=== PATIENT | female | born 1945 | race African-American/Black ===

== ENCOUNTER → 2016-11-30 | Outpatient (CLI) | payer MEDICARE, MEDICAID ==
[~2016-11-30] MED LIST: AMLO10TA80 PO; ASPI-1159 PO; HYDR-519 PO; LIP40 PO; MORP15TA67 PO; PRO AIR INH; TELM80TA5 PO; ZOLP10TA6 PO
== END | disposition home or self-care (01) ==
LOC: NM 07:37
PROVIDERS: ATTEND Internal Medicine
DX: C50.919 Malignant neoplasm of unspecified site of unspecified female breast (principal); M17.0 Bilateral primary osteoarthritis of knee
CPT/HCPCS: 78306; A9503

== ENCOUNTER → 2017-08-02 | Day surgery (SDC) | payer MEDICARE, MEDICAID ==
[~2017-08-02] MED LIST changes: +LIDOCAINE HCL/PF 1% 10 MG/ML 30ML VIAL ONE; +SODIUM BICARBONATE 4% (2.4MEQ) 5ML VIAL IV ONE
== END | disposition home or self-care (01) ==
LOC: RAD 08:24
PROVIDERS: ATTEND Internal Medicine Hematology & Oncology
DX: D17.1 Benign lipomatous neoplasm of skin and subcutaneous tissue of trunk (principal)
CPT/HCPCS: 76942; 88305; J3490

== ENCOUNTER 2018-05-10 08:14 | Emergency (ER) | payer MEDICARE, MEDICAID ==
[~2018-05-10] VITALS: Ht 170.2 cm; Wt 100.0 kg
[~2018-05-10 08:14] MED LIST changes: -LIDOCAINE HCL/PF 1% 10 MG/ML 30ML VIAL ONE; -SODIUM BICARBONATE 4% (2.4MEQ) 5ML VIAL IV ONE; -TELM80TA5 PO; +TELM80TA8 PO
[2018-05-10 09:45] LABS: BASOPHILS % 1.1 % (0.0-2.0); EOSINOPHILS % 1.2 % (0.0-5.0); HEMATOCRIT. 36.3 % (36.0-48.0); HEMOGLOBIN. 11.6 g/dL (12.0-16.0); LYMPHOCYTES % 15.7 % (20.0-50.0); MEAN CORPUSCULAR HEMOGLOBIN 28.4 pg (28.0-32.0); MEAN CORPUSCULAR VOLUME 89.1 fL (81.0-99.0); MEAN PLATELET VOLUME 8.6 fl (7.4-10.4); MONOCYTES % 7.1 % (2.0-8.0); NEUTROPHILS % 74.9 % (40.0-76.0); PLATELET 248 x1000/uL (130-400); RED BLOOD CELL COUNT 4.07 mill/uL (4.2-5.4); RED CELL DISTRIBUTION WIDTH 13.6 % (11.6-14.6)
[2018-05-10 09:49] LABS: CHLORIDE 104 mEq/L (98-107)
[2018-05-10 12:49] VITALS: BP 153/70
== END 2018-05-10 13:01 | disposition home or self-care (01) ==
LOC: ER 08:25
DX: T65.221A Toxic effect of tobacco cigarettes, accidental (unintentional), initial encounter (principal); R06.02 Shortness of breath; D64.9 Anemia, unspecified; E11.65 Type 2 diabetes mellitus with hyperglycemia; I11.0 Hypertensive heart disease with heart failure; I50.9 Heart failure, unspecified; J44.9 Chronic obstructive pulmonary disease, unspecified; Y93.89 Activity, other specified; Y92.018 Other place in single-family (private) house as the place of occurrence of the external cause; Z79.899 Other long term (current) drug therapy
CPT/HCPCS: 36415; 71045; 83880; 84484; 93005; 99284

== ENCOUNTER 2019-01-13 16:37 | Emergency (ER) | payer MEDICARE, MEDICAID ==
[~2019-01-13] VITALS: Ht 162.6 cm; Wt 120.0 kg
[~2019-01-13 16:37] MED LIST changes: -ASPI-1159 PO; +ASPI-1393 PO
[2019-01-13] MEDS ORDERED: KETOROLAC 30MG/ML VIAL IV ONE (18:30)
[2019-01-13] MEDS ORDERED: MORPHINE SULFATE 10 MG/ML CPJ IV ONE (18:30)
[2019-01-13 19:10] LABS: BASOPHILS % 0.6 % (0.0-2.0); EOSINOPHILS % 0.3 % (0.0-5.0); HEMOGLOBIN. 11.2 g/dL (12.0-16.0); LYMPHOCYTES % 19.5 % (20.0-50.0); MEAN CORPUSCULAR HEMOGLOBIN 28.8 pg (28.0-32.0); MEAN CORPUSCULAR VOLUME 89.8 fL (81.0-99.0); MEAN PLATELET VOLUME 8.2 fl (7.4-10.4); MONOCYTES % 10.3 % (2.0-8.0); NEUTROPHILS % 69.3 % (40.0-76.0); PLATELET 263 x1000/uL (130-400)
[2019-01-13 22:43] VITALS: BP 126/70
== END 2019-01-13 23:09 | disposition home or self-care (01) ==
LOC: ER 17:15
DX: M17.12 Unilateral primary osteoarthritis, left knee (principal); E66.01 Morbid (severe) obesity due to excess calories; Z68.42 Body mass index [BMI] 45.0-49.9, adult; I10 Essential (primary) hypertension
CPT/HCPCS: 36415; 73562; 80048; 85025; 96374; 96375; 99284; J1885; J2270

== ENCOUNTER 2019-04-07 21:58 | Inpatient (IN) | payer MEDICARE, MEDICAID ==
[~2019-04-07] VITALS: Ht 162.6 cm; Wt 117.9 kg
[~2019-04-07 21:58] MED LIST changes: +ALBU4TAB6 PO; -ASPI-1393 PO; +ASPI-1497 PO; +LETR2.5T6 PO; +LORA-249 PO; +MECL-159 PO; -MORP15TA67 PO; +MORP30TA66 PO; +SPIR25TA6 PO; +TRAZ-252 PO; +XALAO EACHEYE
[2019-04-07 22:25] VITALS: BP 111/50
[2019-04-07 22:45] VITALS: BP 111/50
[2019-04-07] MEDS ORDERED: ACETAMINOPHEN 325MG TABLET PO PRN (23:15)
[2019-04-07] MEDS ORDERED: HYDROCODONE/ACETAMINOPHEN 5/325MG TABLET PO PRN (23:15)
[2019-04-07] MEDS ORDERED: ONDANSETRON HCL 4MG TABLET PO PRN (23:15)
[2019-04-07] MEDS ORDERED: CLONIDINE 0.1MG TABLET PO PRN (23:15)
[2019-04-07] MEDS ORDERED: LORAZEPAM 0.5MG TABLET PO PRN (23:15)
[2019-04-07] MEDS ORDERED: LACTULOSE 20G/30ML UDC PO PRN (23:15)
[2019-04-07] MEDS: LETROZOLE 2.5MG TABLET PO SCH (23:37)
[2019-04-07] MEDS: HYDROCODONE/ACETAMINOPHEN 10/325MG TABLET PO PRN (23:38)
[2019-04-08] MEDS: IPRATROPIUM/ALBUTEROL 0.5-3(2.5)MG/3ML NEB HHN SCH ×4 (00:50→20:15)
[2019-04-08] MEDS: ZOLPIDEM TARTRATE 5MG TABLET PO PRN (00:53)
[2019-04-08] MEDS: HYDROCODONE/ACETAMINOPHEN 10/325MG TABLET PO PRN ×5 (03:21→22:02)
[2019-04-08 08:00] VITALS: BP 122/46
[2019-04-08] MEDS: ASPIRIN 325MG EC TABLET PO SCH ×2 (08:06→16:14)
[2019-04-08] MEDS: SENNOSIDES/DOCUSATE SOD 8.6/50MG TABLET PO SCH ×2 (08:06→20:47)
[2019-04-08] MEDS: DOCUSATE SODIUM 100MG CAPSULE PO SCH ×2 (08:06→16:14)
[2019-04-08] MEDS: AMLODIPINE 10MG TABLET PO SCH (08:11)
[2019-04-08 20:00] VITALS: BP 140/56
[2019-04-08] MEDS: LETROZOLE 2.5MG TABLET PO SCH (20:46)
[2019-04-08] MEDS: ATORVASTATIN CALCIUM 40MG TABLET PO SCH (20:47)
[2019-04-08] MEDS: FAMOTIDINE 20MG TABLET PO SCH (20:47)
[2019-04-08] MEDS: TRAZODONE HCL 50MG TABLET PO SCH (20:47)
[2019-04-08] MEDS: LATANOPROST 0.005% OPHTH DROPS 2.5ML BOTHEYE SCH (20:47)
[2019-04-09] MEDS: HYDROCODONE/ACETAMINOPHEN 10/325MG TABLET PO PRN ×6 (01:02→20:15)
[2019-04-09] MEDS: IPRATROPIUM/ALBUTEROL 0.5-3(2.5)MG/3ML NEB HHN SCH ×4 (01:15→21:00)
[2019-04-09 07:06] LABS: CHLORIDE 107 mEq/L (98-107)
[2019-04-09 07:44] LABS: HEMATOCRIT 28.6 % (36.0-48.0); HEMOGLOBIN 9.4 g/dL (12.0-16.0); MEAN CORPUSCULAR VOLUME 88.4 fL (81.0-99.0); RED BLOOD CELL COUNT 3.24 mill/uL (4.2-5.4); RED CELL DISTRIBUTION WIDTH 14.1 % (11.6-14.6)
[2019-04-09 08:00] VITALS: BP 129/56
[2019-04-09] MEDS: DOCUSATE SODIUM 100MG CAPSULE PO SCH ×2 (08:25→17:00)
[2019-04-09] MEDS: SENNOSIDES/DOCUSATE SOD 8.6/50MG TABLET PO SCH ×2 (08:25→20:15)
[2019-04-09] MEDS: ASPIRIN 325MG EC TABLET PO SCH ×2 (08:25→18:06)
[2019-04-09] MEDS: AMLODIPINE 10MG TABLET PO SCH (08:25)
[2019-04-09 11:07] LABS: PLATELET 238 x1000/uL (130-400)
[2019-04-09] MEDS: LACTULOSE 20G/30ML UDC PO SCH ×3 (12:05→18:18)
[2019-04-09 13:00] VITALS: BP 135/59
[2019-04-09 20:00] VITALS: BP 154/65
[2019-04-09] MEDS: LATANOPROST 0.005% OPHTH DROPS 2.5ML BOTHEYE SCH (20:15)
[2019-04-09] MEDS: FAMOTIDINE 20MG TABLET PO SCH (20:15)
[2019-04-09] MEDS: TRAZODONE HCL 50MG TABLET PO SCH (20:15)
[2019-04-09] MEDS: ATORVASTATIN CALCIUM 40MG TABLET PO SCH (20:15)
[2019-04-09] MEDS: LETROZOLE 2.5MG TABLET PO SCH (20:15)
[2019-04-10] MEDS: HYDROCODONE/ACETAMINOPHEN 10/325MG TABLET PO PRN ×3 (02:48→10:44)
[2019-04-10 05:23] LABS: CLARITY URINE CLEAR (CLEAR); COLOR URINE YELLOW (YELLOW); KETONES URINE NEGATIVE (NEGATIVE); LEUKOCYTE ESTERASE URINE 2+ (NEGATIVE); NITRITE URINE NEGATIVE (NEGATIVE); OCCULT BLOOD URINE 3+ (NEGATIVE); PH URINE 5.5 (4.5-8.0); PROTEIN URINE NEGATIVE (NEGATIVE); SPECIFIC GRAVITY URINE 1.018 (1.005-1.030); UROBILINOGEN URINE 0.2 E.U./dL (0.2-1.0)
[2019-04-10 08:00] VITALS: BP 136/51
[2019-04-10] MEDS: IPRATROPIUM/ALBUTEROL 0.5-3(2.5)MG/3ML NEB HHN SCH ×4 (08:25→20:24)
[2019-04-10] MEDS: DOCUSATE SODIUM 100MG CAPSULE PO SCH ×2 (08:38→16:42)
[2019-04-10] MEDS: AMLODIPINE 10MG TABLET PO SCH (08:38)
[2019-04-10] MEDS: SENNOSIDES/DOCUSATE SOD 8.6/50MG TABLET PO SCH ×2 (08:38→20:56)
[2019-04-10] MEDS: ASPIRIN 325MG EC TABLET PO SCH ×2 (08:38→16:42)
[2019-04-10 10:40] VITALS: BP 137/53
[2019-04-10] MEDS ORDERED: OXYCODONE HCL/ACETAMINOPHEN 5/325MG TABLET PO PRN (13:45)
[2019-04-10 14:05] VITALS: BP 138/54
[2019-04-10] MEDS ORDERED: LEVOFLOXACIN 500MG PREMIX 100 ML IV SCH (15:00)
[2019-04-10] MEDS: LEVOFLOXACIN 500MG TABLET PO SCH (16:42)
[2019-04-10 20:00] VITALS: BP 134/53
[2019-04-10] MEDS: FAMOTIDINE 20MG TABLET PO SCH (20:56)
[2019-04-10] MEDS: TRAZODONE HCL 50MG TABLET PO SCH (20:56)
[2019-04-10] MEDS: ATORVASTATIN CALCIUM 40MG TABLET PO SCH (20:56)
[2019-04-10] MEDS: LATANOPROST 0.005% OPHTH DROPS 2.5ML BOTHEYE SCH (22:13)
[2019-04-10] MEDS: LETROZOLE 2.5MG TABLET PO SCH (22:13)
[2019-04-10] MEDS ORDERED: HYDROCODONE/ACETAMINOPHEN 10/325MG TABLET PO PRN (22:15)
[2019-04-11] MEDS: IPRATROPIUM/ALBUTEROL 0.5-3(2.5)MG/3ML NEB HHN SCH ×4 (00:13→20:42)
[2019-04-11] MEDS: HYDROCODONE/ACETAMINOPHEN 10/325MG TABLET PO PRN ×5 (03:10→21:22)
[2019-04-11 07:10] LABS: HEMATOCRIT 26.9 % (36.0-48.0); HEMOGLOBIN 8.9 g/dL (12.0-16.0); MEAN CORPUSCULAR HEMOGLOBIN 29.1 pg (28.0-32.0); PLATELET 325 x1000/uL (130-400); RED BLOOD CELL COUNT 3.06 mill/uL (4.2-5.4); RED CELL DISTRIBUTION WIDTH 14.1 % (11.6-14.6)
[2019-04-11] MEDS: SENNOSIDES/DOCUSATE SOD 8.6/50MG TABLET PO SCH ×2 (08:10→21:16)
[2019-04-11] MEDS: AMLODIPINE 10MG TABLET PO SCH (08:10)
[2019-04-11] MEDS: LEVOFLOXACIN 500MG TABLET PO SCH (08:10)
[2019-04-11] MEDS: DOCUSATE SODIUM 100MG CAPSULE PO SCH ×2 (08:10→16:26)
[2019-04-11] MEDS: ASPIRIN 325MG EC TABLET PO SCH ×2 (08:10→16:26)
[2019-04-11 08:20] VITALS: BP 128/55
[2019-04-11 08:29] LABS: CHLORIDE 105 mEq/L (98-107)
[2019-04-11 11:15] VITALS: BP 156/72
[2019-04-11] MEDS ORDERED: LACTULOSE 20G/30ML UDC PO NR (13:15)
[2019-04-11] MEDS ORDERED: MORPHINE SULFATE 30MG TABLET SR PO PRN (13:15)
[2019-04-11 14:55] VITALS: BP 161/79
[2019-04-11] MEDS: CLOTRIMAZOLE 1% CREAM 30GM TOP SCH (17:48)
[2019-04-11 20:00] VITALS: BP 125/52
[2019-04-11] MEDS: LATANOPROST 0.005% OPHTH DROPS 2.5ML BOTHEYE SCH (21:16)
[2019-04-11] MEDS: ATORVASTATIN CALCIUM 40MG TABLET PO SCH (21:16)
[2019-04-11] MEDS: FAMOTIDINE 20MG TABLET PO SCH (21:16)
[2019-04-11] MEDS: TRAZODONE HCL 50MG TABLET PO SCH (21:21)
[2019-04-11] MEDS: LETROZOLE 2.5MG TABLET PO SCH (21:41)
[2019-04-12] MEDS: IPRATROPIUM/ALBUTEROL 0.5-3(2.5)MG/3ML NEB HHN SCH ×4 (01:11→20:05)
[2019-04-12] MEDS: HYDROCODONE/ACETAMINOPHEN 10/325MG TABLET PO PRN ×5 (02:53→23:32)
[2019-04-12 08:02] VITALS: BP 137/47
[2019-04-12] MEDS: AMLODIPINE 10MG TABLET PO SCH (08:56)
[2019-04-12] MEDS: CLOTRIMAZOLE 1% CREAM 30GM TOP SCH (08:56)
[2019-04-12] MEDS: ASPIRIN 325MG EC TABLET PO SCH ×2 (08:56→16:12)
[2019-04-12] MEDS: SENNOSIDES/DOCUSATE SOD 8.6/50MG TABLET PO SCH ×2 (08:56→21:35)
[2019-04-12] MEDS: LEVOFLOXACIN 500MG TABLET PO SCH (08:56)
[2019-04-12] MEDS: LACTULOSE 20G/30ML UDC PO SCH (08:57)
[2019-04-12] MEDS: DOCUSATE SODIUM 100MG CAPSULE PO SCH ×2 (08:57→16:12)
[2019-04-12 20:00] VITALS: BP 141/47
[2019-04-12] MEDS: LATANOPROST 0.005% OPHTH DROPS 2.5ML BOTHEYE SCH (21:34)
[2019-04-12] MEDS: ATORVASTATIN CALCIUM 40MG TABLET PO SCH (21:35)
[2019-04-12] MEDS: FAMOTIDINE 20MG TABLET PO SCH (21:35)
[2019-04-12] MEDS: TRAZODONE HCL 50MG TABLET PO SCH (21:35)
[2019-04-12] MEDS: LETROZOLE 2.5MG TABLET PO SCH (21:35)
[2019-04-13] MEDS: HYDROCODONE/ACETAMINOPHEN 10/325MG TABLET PO PRN ×4 (06:35→19:31)
[2019-04-13 06:41] LABS: BASOPHILS % 1.2 % (0.0-2.0); EOSINOPHILS % 3.9 % (0.0-5.0); HEMATOCRIT. 26.5 % (36.0-48.0); HEMOGLOBIN. 8.8 g/dL (12.0-16.0); LYMPHOCYTES % 14.3 % (20.0-50.0); MEAN CORPUSCULAR VOLUME 87.6 fL (81.0-99.0); MEAN PLATELET VOLUME 7.8 fl (7.4-10.4); MONOCYTES % 10.2 % (2.0-8.0); NEUTROPHILS % 70.4 % (40.0-76.0); PLATELET 393 x1000/uL (130-400); RED BLOOD CELL COUNT 3.03 mill/uL (4.2-5.4)
[2019-04-13 07:24] LABS: CHLORIDE 107 mEq/L (98-107)
[2019-04-13 07:40] VITALS: BP 125/52
[2019-04-13] MEDS: LEVOFLOXACIN 500MG TABLET PO SCH (08:11)
[2019-04-13] MEDS: SENNOSIDES/DOCUSATE SOD 8.6/50MG TABLET PO SCH ×2 (08:11→21:05)
[2019-04-13] MEDS: DOCUSATE SODIUM 100MG CAPSULE PO SCH ×3 (08:11→16:52)
[2019-04-13] MEDS: AMLODIPINE 10MG TABLET PO SCH (08:11)
[2019-04-13] MEDS: ASPIRIN 325MG EC TABLET PO SCH ×2 (08:11→16:50)
[2019-04-13] MEDS: LACTULOSE 20G/30ML UDC PO SCH (08:12)
[2019-04-13] MEDS: CLOTRIMAZOLE 1% CREAM 30GM TOP SCH (08:13)
[2019-04-13] MEDS: IPRATROPIUM/ALBUTEROL 0.5-3(2.5)MG/3ML NEB HHN SCH ×4 (11:04→19:50)
[2019-04-13 15:37] LABS: CLARITY URINE CLEAR (CLEAR); COLOR URINE YELLOW (YELLOW); KETONES URINE NEGATIVE (NEGATIVE); LEUKOCYTE ESTERASE URINE NEGATIVE (NEGATIVE); NITRITE URINE NEGATIVE (NEGATIVE); OCCULT BLOOD URINE NEGATIVE (NEGATIVE); PROTEIN URINE NEGATIVE (NEGATIVE); SPECIFIC GRAVITY URINE 1.023 (1.005-1.030); UROBILINOGEN URINE 0.2 E.U./dL (0.2-1.0)
[2019-04-13 20:00] VITALS: BP 140/51
[2019-04-13] MEDS: LATANOPROST 0.005% OPHTH DROPS 2.5ML BOTHEYE SCH (21:04)
[2019-04-13] MEDS: LETROZOLE 2.5MG TABLET PO SCH (21:04)
[2019-04-13] MEDS: ATORVASTATIN CALCIUM 40MG TABLET PO SCH (21:05)
[2019-04-13] MEDS: TRAZODONE HCL 50MG TABLET PO SCH (21:05)
[2019-04-13] MEDS: FAMOTIDINE 20MG TABLET PO SCH (21:05)
[2019-04-13] MEDS: ZOLPIDEM TARTRATE 5MG TABLET PO PRN (21:38)
[2019-04-14] MEDS: HYDROCODONE/ACETAMINOPHEN 10/325MG TABLET PO PRN ×6 (00:59→22:38)
[2019-04-14] MEDS: ASPIRIN 325MG EC TABLET PO SCH ×2 (08:13→16:46)
[2019-04-14] MEDS: CLOTRIMAZOLE 1% CREAM 30GM TOP SCH (08:13)
[2019-04-14] MEDS: LEVOFLOXACIN 500MG TABLET PO SCH (08:13)
[2019-04-14] MEDS: AMLODIPINE 10MG TABLET PO SCH (08:14)
[2019-04-14] MEDS: SENNOSIDES/DOCUSATE SOD 8.6/50MG TABLET PO SCH ×3 (08:14→22:34)
[2019-04-14] MEDS: LACTULOSE 20G/30ML UDC PO SCH (08:14)
[2019-04-14] MEDS: DOCUSATE SODIUM 100MG CAPSULE PO SCH ×2 (08:14→16:46)
[2019-04-14 08:33] VITALS: BP 133/52
[2019-04-14 09:55] VITALS: BP 138/44
[2019-04-14] MEDS: IPRATROPIUM/ALBUTEROL 0.5-3(2.5)MG/3ML NEB HHN SCH ×3 (13:13→21:10)
[2019-04-14 14:30] VITALS: BP 109/67
[2019-04-14 18:15] VITALS: BP 124/56
[2019-04-14 20:00] VITALS: BP 133/55
[2019-04-14] MEDS: ATORVASTATIN CALCIUM 40MG TABLET PO SCH (21:33)
[2019-04-14] MEDS: FAMOTIDINE 20MG TABLET PO SCH (21:33)
[2019-04-14] MEDS: TRAZODONE HCL 50MG TABLET PO SCH (21:33)
[2019-04-14] MEDS: LATANOPROST 0.005% OPHTH DROPS 2.5ML BOTHEYE SCH (21:34)
[2019-04-14] MEDS: LETROZOLE 2.5MG TABLET PO SCH (21:34)
[2019-04-15] MEDS: ZOLPIDEM TARTRATE 5MG TABLET PO PRN ×2 (00:06→23:55)
[2019-04-15] MEDS: IPRATROPIUM/ALBUTEROL 0.5-3(2.5)MG/3ML NEB HHN SCH (00:20)
[2019-04-15] MEDS: HYDROCODONE/ACETAMINOPHEN 10/325MG TABLET PO PRN ×5 (05:23→22:17)
[2019-04-15] MEDS ORDERED: BISACODYL 10MG SUPP PR PRN (08:30)
[2019-04-15 08:31] VITALS: BP 121/60
[2019-04-15] MEDS: SENNOSIDES/DOCUSATE SOD 8.6/50MG TABLET PO SCH ×2 (08:46→21:37)
[2019-04-15] MEDS: ASPIRIN 325MG EC TABLET PO SCH ×2 (08:46→16:06)
[2019-04-15] MEDS: CLOTRIMAZOLE 1% CREAM 30GM TOP SCH (08:46)
[2019-04-15] MEDS: DOCUSATE SODIUM 100MG CAPSULE PO SCH ×2 (08:46→16:07)
[2019-04-15] MEDS: LEVOFLOXACIN 500MG TABLET PO SCH (08:46)
[2019-04-15] MEDS: LACTULOSE 20G/30ML UDC PO SCH (08:47)
[2019-04-15 09:30] VITALS: BP 133/72
[2019-04-15] MEDS: AMLODIPINE 10MG TABLET PO SCH (10:31)
[2019-04-15 20:00] VITALS: BP 119/42
[2019-04-15] MEDS: ATORVASTATIN CALCIUM 40MG TABLET PO SCH (21:37)
[2019-04-15] MEDS: FAMOTIDINE 20MG TABLET PO SCH (21:37)
[2019-04-15] MEDS: TRAZODONE HCL 50MG TABLET PO SCH (21:38)
[2019-04-15] MEDS: LETROZOLE 2.5MG TABLET PO SCH (21:38)
[2019-04-15] MEDS: LATANOPROST 0.005% OPHTH DROPS 2.5ML BOTHEYE SCH (21:40)
[2019-04-16] MEDS ORDERED: HYDROCODONE/ACETAMINOPHEN 10/325MG TABLET PO PRN (02:00)
[2019-04-16] MEDS: HYDROCODONE/ACETAMINOPHEN 10/325MG TABLET PO PRN ×5 (04:14→21:47)
[2019-04-16 07:50] LABS: BASOPHILS % 1.2 % (0.0-2.0); EOSINOPHILS % 3.5 % (0.0-5.0); HEMATOCRIT. 28.9 % (36.0-48.0); HEMOGLOBIN. 9.3 g/dL (12.0-16.0); MEAN CORPUSCULAR HEMOGLOBIN 28.5 pg (28.0-32.0); MEAN CORPUSCULAR VOLUME 88.4 fL (81.0-99.0); MEAN PLATELET VOLUME 7.5 fl (7.4-10.4); MONOCYTES % 9.1 % (2.0-8.0); NEUTROPHILS % 71.2 % (40.0-76.0); PLATELET 461 x1000/uL (130-400); RED BLOOD CELL COUNT 3.27 mill/uL (4.2-5.4); RED CELL DISTRIBUTION WIDTH 14.3 % (11.6-14.6)
[2019-04-16 07:54] LABS: CHLORIDE 109 mEq/L (98-107)
[2019-04-16 08:00] VITALS: BP 118/49
[2019-04-16] MEDS: SENNOSIDES/DOCUSATE SOD 8.6/50MG TABLET PO SCH ×2 (08:31→21:32)
[2019-04-16] MEDS: ASPIRIN 325MG EC TABLET PO SCH ×2 (08:31→16:55)
[2019-04-16] MEDS: DOCUSATE SODIUM 100MG CAPSULE PO SCH ×2 (08:31→16:55)
[2019-04-16] MEDS: LEVOFLOXACIN 500MG TABLET PO SCH (08:31)
[2019-04-16] MEDS: AMLODIPINE 10MG TABLET PO SCH (08:33)
[2019-04-16] MEDS: LACTULOSE 20G/30ML UDC PO SCH (08:33)
[2019-04-16] MEDS: CLOTRIMAZOLE 1% CREAM 30GM TOP SCH (08:34)
[2019-04-16] MEDS: IPRATROPIUM/ALBUTEROL 0.5-3(2.5)MG/3ML NEB HHN SCH ×2 (15:44→21:28)
[2019-04-16 20:00] VITALS: BP 148/55
[2019-04-16] MEDS: TRAZODONE HCL 50MG TABLET PO SCH (21:32)
[2019-04-16] MEDS: ATORVASTATIN CALCIUM 40MG TABLET PO SCH (21:32)
[2019-04-16] MEDS: LETROZOLE 2.5MG TABLET PO SCH (21:32)
[2019-04-16] MEDS: FAMOTIDINE 20MG TABLET PO SCH (21:32)
[2019-04-16] MEDS: LATANOPROST 0.005% OPHTH DROPS 2.5ML BOTHEYE SCH (21:33)
[2019-04-16] MEDS: ZOLPIDEM TARTRATE 5MG TABLET PO PRN (23:28)
[2019-04-17] MEDS: IPRATROPIUM/ALBUTEROL 0.5-3(2.5)MG/3ML NEB HHN SCH ×4 (01:13→20:32)
[2019-04-17] MEDS: HYDROCODONE/ACETAMINOPHEN 10/325MG TABLET PO PRN ×5 (03:55→21:23)
[2019-04-17 08:00] VITALS: BP 134/56
[2019-04-17] MEDS: AMLODIPINE 10MG TABLET PO SCH (08:12)
[2019-04-17] MEDS: SENNOSIDES/DOCUSATE SOD 8.6/50MG TABLET PO SCH ×2 (08:12→21:23)
[2019-04-17] MEDS: DOCUSATE SODIUM 100MG CAPSULE PO SCH ×2 (08:12→16:39)
[2019-04-17] MEDS: LEVOFLOXACIN 500MG TABLET PO SCH (08:12)
[2019-04-17] MEDS: ASPIRIN 325MG EC TABLET PO SCH ×2 (08:12→16:39)
[2019-04-17] MEDS: CLOTRIMAZOLE 1% CREAM 30GM TOP SCH (08:56)
[2019-04-17] MEDS: LACTULOSE 20G/30ML UDC PO SCH (08:56)
[2019-04-17 20:00] VITALS: BP 107/46
[2019-04-17] MEDS: LATANOPROST 0.005% OPHTH DROPS 2.5ML BOTHEYE SCH (21:21)
[2019-04-17] MEDS: TRAZODONE HCL 50MG TABLET PO SCH (21:22)
[2019-04-17] MEDS: FAMOTIDINE 20MG TABLET PO SCH (21:22)
[2019-04-17] MEDS: ATORVASTATIN CALCIUM 40MG TABLET PO SCH (21:23)
[2019-04-17] MEDS: LETROZOLE 2.5MG TABLET PO SCH (21:24)
[2019-04-17] MEDS: ZOLPIDEM TARTRATE 5MG TABLET PO PRN (23:57)
[2019-04-18] MEDS: IPRATROPIUM/ALBUTEROL 0.5-3(2.5)MG/3ML NEB HHN SCH ×3 (00:03→19:54)
[2019-04-18] MEDS: HYDROCODONE/ACETAMINOPHEN 10/325MG TABLET PO PRN ×5 (02:32→21:02)
[2019-04-18 06:32] LABS: BASOPHILS % 1.2 % (0.0-2.0); EOSINOPHILS % 3.4 % (0.0-5.0); HEMATOCRIT. 29.1 % (36.0-48.0); HEMOGLOBIN. 9.3 g/dL (12.0-16.0); LYMPHOCYTES % 20.1 % (20.0-50.0); MEAN CORPUSCULAR HEMOGLOBIN 28.4 pg (28.0-32.0); MEAN CORPUSCULAR VOLUME 88.8 fL (81.0-99.0); MEAN PLATELET VOLUME 7.3 fl (7.4-10.4); MONOCYTES % 10.1 % (2.0-8.0); NEUTROPHILS % 65.2 % (40.0-76.0); PLATELET 435 x1000/uL (130-400); RED BLOOD CELL COUNT 3.28 mill/uL (4.2-5.4); RED CELL DISTRIBUTION WIDTH 14.6 % (11.6-14.6)
[2019-04-18 06:54] LABS: CHLORIDE 109 mEq/L (98-107)
[2019-04-18 08:09] VITALS: BP 158/62
[2019-04-18] MEDS: LACTULOSE 20G/30ML UDC PO SCH ×2 (09:00→09:10)
[2019-04-18] MEDS: ASPIRIN 325MG EC TABLET PO SCH ×2 (09:10→16:37)
[2019-04-18] MEDS: SENNOSIDES/DOCUSATE SOD 8.6/50MG TABLET PO SCH ×2 (09:10→21:00)
[2019-04-18] MEDS: AMLODIPINE 10MG TABLET PO SCH (09:10)
[2019-04-18] MEDS: CLOTRIMAZOLE 1% CREAM 30GM TOP SCH (09:10)
[2019-04-18] MEDS: DOCUSATE SODIUM 100MG CAPSULE PO SCH ×2 (09:10→16:37)
[2019-04-18] MEDS: MAGNESIUM OXIDE 400MG TABLET PO SCH (18:25)
[2019-04-18 20:00] VITALS: BP 116/46
[2019-04-18] MEDS: FAMOTIDINE 20MG TABLET PO SCH (21:00)
[2019-04-18] MEDS: TRAZODONE HCL 50MG TABLET PO SCH (21:00)
[2019-04-18] MEDS: ATORVASTATIN CALCIUM 40MG TABLET PO SCH (21:00)
[2019-04-18] MEDS: LETROZOLE 2.5MG TABLET PO SCH (21:02)
[2019-04-18] MEDS: LATANOPROST 0.005% OPHTH DROPS 2.5ML BOTHEYE SCH (21:02)
[2019-04-19] MEDS ORDERED: ZOLPIDEM TARTRATE 5MG TABLET PO PRN (00:15)
[2019-04-19] MEDS: IPRATROPIUM/ALBUTEROL 0.5-3(2.5)MG/3ML NEB HHN SCH ×3 (01:45→13:09)
[2019-04-19] MEDS: HYDROCODONE/ACETAMINOPHEN 10/325MG TABLET PO PRN ×3 (03:08→13:38)
[2019-04-19 08:23] VITALS: BP 113/42
[2019-04-19] MEDS: MAGNESIUM OXIDE 400MG TABLET PO SCH (08:38)
[2019-04-19] MEDS: ASPIRIN 325MG EC TABLET PO SCH (08:38)
[2019-04-19] MEDS: SENNOSIDES/DOCUSATE SOD 8.6/50MG TABLET PO SCH (08:38)
[2019-04-19] MEDS: CLOTRIMAZOLE 1% CREAM 30GM TOP SCH (08:38)
[2019-04-19] MEDS: DOCUSATE SODIUM 100MG CAPSULE PO SCH (08:38)
[2019-04-19] MEDS: LACTULOSE 20G/30ML UDC PO SCH (09:00)
[2019-04-19 10:50] VITALS: BP 154/64
[2019-04-19] MEDS: AMLODIPINE 10MG TABLET PO SCH (10:56)
[2019-04-19] MEDS ORDERED: IPRA3AMP9 NEB (13:06)
[2019-04-19 14:23] VITALS: BP 126/54
== END 2019-04-19 16:15 | disposition home health service (06) | DRG 554 ==
PROVIDERS: ADMIT Psychiatry & Neurology Neurology; ATTEND Internal Medicine
PROC: 0HBRXZZ Excision of Toe Nail, External Approach (ICD-10-PCS; principal; 2019-04-11)
PROC: 0HBRXZZ Excision of Toe Nail, External Approach (ICD-10-PCS; 2019-04-11)
PROC: 0HBRXZZ Excision of Toe Nail, External Approach (ICD-10-PCS; 2019-04-11)
PROC: 0HBRXZZ Excision of Toe Nail, External Approach (ICD-10-PCS; 2019-04-11)
PROC: 0HBRXZZ Excision of Toe Nail, External Approach (ICD-10-PCS; 2019-04-11)
PROC: 0HBRXZZ Excision of Toe Nail, External Approach (ICD-10-PCS; 2019-04-11)
PROC: 0HBRXZZ Excision of Toe Nail, External Approach (ICD-10-PCS; 2019-04-11)
PROC: 0HBRXZZ Excision of Toe Nail, External Approach (ICD-10-PCS; 2019-04-11)
PROC: 0HBRXZZ Excision of Toe Nail, External Approach (ICD-10-PCS; 2019-04-11)
PROC: 0HBRXZZ Excision of Toe Nail, External Approach (ICD-10-PCS; 2019-04-11)
DX: M17.12 Unilateral primary osteoarthritis, left knee (principal); Z68.41 Body mass index [BMI] 40.0-44.9, adult; F11.20 Opioid dependence, uncomplicated; I31.3 Pericardial effusion (noninflammatory); N39.0 Urinary tract infection, site not specified; D64.9 Anemia, unspecified; E11.9 Type 2 diabetes mellitus without complications; E66.01 Morbid (severe) obesity due to excess calories; E78.5 Hyperlipidemia, unspecified; I11.9 Hypertensive heart disease without heart failure; I25.10 Atherosclerotic heart disease of native coronary artery without angina pectoris; J45.909 Unspecified asthma, uncomplicated; Z96.652 Presence of left artificial knee joint; Z87.891 Personal history of nicotine dependence; Z79.899 Other long term (current) drug therapy; Z79.82 Long term (current) use of aspirin; B35.3 Tinea pedis; B35.1 Tinea unguium; Z71.3 Dietary counseling and surveillance; M21.372 Foot drop, left foot; K59.00 Constipation, unspecified; B96.5 Pseudomonas (aeruginosa) (mallei) (pseudomallei) as the cause of diseases classified elsewhere; G89.29 Other chronic pain
CPT/HCPCS: 36415; 80048; 81003; 82962; 83735; 85025; 85027; 87077; 87186; 93306; 94640; 97110; 97116; 97162; 97166; 97530; 97535; A6261; J1956; J7620

== ENCOUNTER 2019-06-17 09:40 | Inpatient (IN) | payer MEDICARE, MEDICAID ==
[~2019-06-17] VITALS: Ht 162.6 cm; Wt 125.2 kg
[~2019-06-17 09:40] MED LIST changes: +IPRA3AMP9 NEB; -LETR2.5T6 PO; +LETR2.5T7 PO
[2019-06-17] MEDS ORDERED: ASPIRIN 81MG TABLET PO ONE (11:30)
[2019-06-17] MEDS ORDERED: IPRATROPIUM BROMIDE (0.02%) 0.5MG/2.5ML NEB HHN STA (11:30)
[2019-06-17] MEDS ORDERED: NITROGLYCERIN 0.4MG TABLET SL SL PRN (11:30)
[2019-06-17] MEDS ORDERED: METHYLPREDNISOLONE SOD SUCC 125 MG/2 ML VIAL IV STA (11:30)
[2019-06-17] MEDS ORDERED: ALBUTEROL (0.083%) 2.5MG/3ML NEB HHN STA (11:30)
[2019-06-17] MEDS ORDERED: AMLODIPINE 5MG TABLET PO ONE (11:45)
[2019-06-17 12:54] LABS: HEMATOCRIT. 33.1 % (36.0-48.0); HEMOGLOBIN. 10.6 g/dL (12.0-16.0); MEAN CORPUSCULAR HEMOGLOBIN 28.1 pg (28.0-32.0); MEAN CORPUSCULAR VOLUME 87.6 fL (81.0-99.0); MEAN PLATELET VOLUME 8.5 fl (7.4-10.4); PLATELET 213 x1000/uL (130-400); RED BLOOD CELL COUNT 3.78 mill/uL (4.2-5.4); RED CELL DISTRIBUTION WIDTH 14.8 % (11.6-14.6)
[2019-06-17 12:57] LABS: CHLORIDE 105 mEq/L (98-107)
[2019-06-17 13:43] LABS: PLATELET ESTIMATE NORMAL
[2019-06-17] MEDS ORDERED: IPRATROPIUM/ALBUTEROL 0.5-3(2.5)MG/3ML NEB NEB PRN (14:45)
[2019-06-17] MEDS ORDERED: MAGNESIUM/ALUMINUM HYDROXIDE/SIMETHICONE 30ML UDC PO PRN (14:45)
[2019-06-17] MEDS ORDERED: ACETAMINOPHEN 325MG TABLET PO PRN (14:45)
[2019-06-17] MEDS ORDERED: DOCUSATE SODIUM 100MG CAPSULE PO PRN (14:45)
[2019-06-17] MEDS ORDERED: GUAIFENESIN 200MG/10ML SUGAR FREE UDC PO PRN (14:45)
[2019-06-17] MEDS ORDERED: DIPHENHYDRAMINE 50MG/ML VIAL IV PRN (14:45)
[2019-06-17] MEDS ORDERED: ACETAMINOPHEN 650MG SUPP PR PRN (14:45)
[2019-06-17] MEDS ORDERED: CLONIDINE 0.1MG TABLET PO PRN (14:45)
[2019-06-17] MEDS ORDERED: ONDANSETRON HCL 4MG/2ML INJ IV PRN (14:45)
[2019-06-17] MEDS ORDERED: NA PHOS,M-B/NA PHOS,DI-BA ENEMA 118ML PR PRN (14:45)
[2019-06-17 17:32] VITALS: BP 156/77
[2019-06-17] MEDS ORDERED: HYDRALAZINE 20MG/ML VIAL IV NR (17:35)
[2019-06-17 18:01] VITALS: BP 156/112
[2019-06-17] MEDS: AMLODIPINE 10MG TABLET PO SCH (18:02)
[2019-06-17] MEDS: IPRATROPIUM/ALBUTEROL 0.5-3(2.5)MG/3ML NEB NEB SCH ×2 (18:35→19:58)
[2019-06-17 18:38] VITALS: BP 155/77
[2019-06-17 18:42] LABS: BG BASE EXCESS -5.1 mmol/L (-2.0-2.0); BG CARBOXYHEMOGLOBIN 0.3 % (0.5-1.5); BG DEOXYHEMOGLOBIN 3.3 % (0.0-5.0); BG FRACTION INSPIRED OXYGEN 36; BG HCO3 ACT 17.6 mmol/L (22.0-26.0); BG METHEMOGLOBIN 0.2 % (0.0-1.5); BG OXYGEN SATURATION 96.7 % (92.0-98.5); BG OXYHEMOGLOBIN 96.2 % (94.0-97.0); BG PCO2 25.5 mmHg (35.0-45.0); BG PH 7.456 (7.350-7.450); BG PO2 85.7 mmHg (75.0-100.0); BG SAMPLE SITE RIGHT RADIAL; BG TOTAL HEMOGLOBIN 10.4 g/dL (12.0-18.0); BG VENT MODE NASAL CANNULA
[2019-06-17] MEDS ORDERED: ENOXAPARIN 40MG/0.4ML SYR SUBCUT SCH (19:00)
[2019-06-17 20:00] VITALS: BP 146/97
[2019-06-17] MEDS: PIPERACILLIN/TAZOBACTAM 3.375 G in DEXT 5% WATER 100 ML IV SCH (20:02)
[2019-06-17] MEDS: ATORVASTATIN CALCIUM 40MG TABLET PO SCH (20:03)
[2019-06-17] MEDS: TRAZODONE HCL 50MG TABLET PO SCH (20:03)
[2019-06-17] MEDS: METHYLPREDNISOLONE SOD SUCC 40 MG/ML VIAL IV SCH (20:03)
[2019-06-17] MEDS: ENOXAPARIN 30MG/0.3ML SYR SUBCUT SCH (20:08)
[2019-06-17] MEDS: FAMOTIDINE 20MG TABLET PO SCH (20:09)
[2019-06-17] MEDS ORDERED: MEDICATION NOT ON FORMULARY EA (Trazodone Hcl 100 MG) PO SCH (21:00)
[2019-06-17] MEDS ORDERED: LETROZOLE 2.5MG TABLET PO SCH (21:00)
[2019-06-17] MEDS: LATANOPROST 0.005% OPHTH DROPS 2.5ML EACHEYE SCH (21:02)
[2019-06-17 22:00] VITALS: BP 151/79
[2019-06-17 23:07] LABS: CREATINE KINASE MB FRACTION 2.9 ng/mL (0.5-3.6)
[2019-06-18] VITALS (14 sets, daily range): BP systolic 116–157; BP diastolic 56–85
[2019-06-18] MEDS: LORAZEPAM 0.5MG TABLET PO PRN (00:55)
[2019-06-18] MEDS: PIPERACILLIN/TAZOBACTAM 3.375 G in DEXT 5% WATER 100 ML IV SCH ×4 (01:01→22:56)
[2019-06-18 06:33] LABS: BASOPHILS % 0.3 % (0.0-2.0); HEMATOCRIT. 32.5 % (36.0-48.0); HEMOGLOBIN. 10.5 g/dL (12.0-16.0); LYMPHOCYTES % 13.6 % (20.0-50.0); MEAN CORPUSCULAR HEMOGLOBIN 27.9 pg (28.0-32.0); MEAN CORPUSCULAR VOLUME 86.6 fL (81.0-99.0); MONOCYTES % 3.5 % (2.0-8.0); NEUTROPHILS % 82.6 % (40.0-76.0); PLATELET 213 x1000/uL (130-400); RED BLOOD CELL COUNT 3.75 mill/uL (4.2-5.4)
[2019-06-18 06:54] LABS: CHLORIDE 103 mEq/L (98-107)
[2019-06-18 07:03] LABS: LDL CHOLESTEROL 68 mg/dL (5-100)
[2019-06-18 07:04] LABS: CREATINE KINASE 115 IU/L (26-192); CREATINE KINASE MB FRACTION 2.2 ng/mL (0.5-3.6); HDL CHOLESTEROL 63 mg/dL (40-59)
[2019-06-18 07:05] LABS: T4 FREE 0.81 ng/dL (0.76-1.46)
[2019-06-18] MEDS: METHYLPREDNISOLONE SOD SUCC 40 MG/ML VIAL IV SCH ×2 (08:16→20:42)
[2019-06-18] MEDS: ENOXAPARIN 30MG/0.3ML SYR SUBCUT SCH ×2 (08:16→20:49)
[2019-06-18] MEDS: SPIRONOLACTONE 25MG TABLET PO SCH (08:17)
[2019-06-18] MEDS: AMLODIPINE 10MG TABLET PO SCH (08:17)
[2019-06-18] MEDS: ASPIRIN 81MG EC TABLET PO SCH (08:17)
[2019-06-18] MEDS ORDERED: LETROZOLE 2.5MG TABLET PO SCH (09:00)
[2019-06-18] MEDS: IPRATROPIUM/ALBUTEROL 0.5-3(2.5)MG/3ML NEB NEB SCH ×2 (09:55→16:57)
[2019-06-18] MEDS: AMLODIPINE 5MG TABLET PO SCH (11:00)
[2019-06-18] MEDS ORDERED: DEXTROSE 50% WATER 50ML SYRINGE IV PRN (14:45)
[2019-06-18] MEDS: BLOOD SUGAR DIAGNOSTIC STRIP TEST SCH ×2 (15:58→21:24)
[2019-06-18] MEDS: INSULIN LISPRO 100 UNITS/ML SUBCUT SCH ×2 (16:32→23:00)
[2019-06-18] MEDS ORDERED: INSULIN LISPRO 100 UNITS/ML SUBCUT SCH (17:20)
[2019-06-18 17:43] LABS: INR 1.1; PROTHROMBIN TIME 11.7 sec (9.6-11.0)
[2019-06-18 18:59] LABS: CLARITY URINE CLEAR (CLEAR); COLOR URINE YELLOW (YELLOW); KETONES URINE NEGATIVE (NEGATIVE); LEUKOCYTE ESTERASE URINE NEGATIVE (NEGATIVE); NITRITE URINE NEGATIVE (NEGATIVE); OCCULT BLOOD URINE NEGATIVE (NEGATIVE); PROTEIN URINE 1+ (NEGATIVE); SPECIFIC GRAVITY URINE 1.027 (1.005-1.030); UROBILINOGEN URINE 0.2 E.U./dL (0.2-1.0)
[2019-06-18] MEDS: ATORVASTATIN CALCIUM 40MG TABLET PO SCH (20:42)
[2019-06-18] MEDS: FAMOTIDINE 20MG TABLET PO SCH (20:42)
[2019-06-18] MEDS: TRAZODONE HCL 50MG TABLET PO SCH (20:42)
[2019-06-18] MEDS: LATANOPROST 0.005% OPHTH DROPS 2.5ML EACHEYE SCH (20:46)
[2019-06-18] MEDS: HYDROCODONE/ACETAMINOPHEN 5/325MG TABLET PO PRN (21:22)
[2019-06-18] MEDS: LETROZOLE 2.5MG TABLET PO SCH (21:23)
[2019-06-19] VITALS (9 sets, daily range): BP systolic 105–180; BP diastolic 47–85
[2019-06-19] MEDS: IPRATROPIUM/ALBUTEROL 0.5-3(2.5)MG/3ML NEB NEB SCH ×4 (02:46→20:37)
[2019-06-19] MEDS: PIPERACILLIN/TAZOBACTAM 3.375 G in DEXT 5% WATER 100 ML IV SCH ×4 (04:56→22:38)
[2019-06-19] MEDS: BLOOD SUGAR DIAGNOSTIC STRIP TEST SCH ×4 (05:29→22:00)
[2019-06-19] MEDS: HYDROCODONE/ACETAMINOPHEN 5/325MG TABLET PO PRN ×3 (05:30→21:48)
[2019-06-19 06:26] LABS: CHLORIDE 101 mEq/L (98-107)
[2019-06-19 06:33] LABS: HEMATOCRIT 29.8 % (36.0-48.0); HEMOGLOBIN 9.8 g/dL (12.0-16.0); MEAN CORPUSCULAR HEMOGLOBIN 28.3 pg (28.0-32.0); MEAN CORPUSCULAR VOLUME 85.9 fL (81.0-99.0); PLATELET 201 x1000/uL (130-400); RED BLOOD CELL COUNT 3.47 mill/uL (4.2-5.4); RED CELL DISTRIBUTION WIDTH 14.5 % (11.6-14.6)
[2019-06-19] MEDS: INSULIN LISPRO 100 UNITS/ML SUBCUT SCH ×5 (07:20→22:51)
[2019-06-19] MEDS: METHYLPREDNISOLONE SOD SUCC 40 MG/ML VIAL IV SCH ×2 (08:55→21:43)
[2019-06-19] MEDS: ASPIRIN 81MG EC TABLET PO SCH (08:56)
[2019-06-19] MEDS: SPIRONOLACTONE 25MG TABLET PO SCH (08:56)
[2019-06-19] MEDS: AMLODIPINE 5MG TABLET PO SCH (08:57)
[2019-06-19] MEDS: AMLODIPINE 10MG TABLET PO SCH (09:00)
[2019-06-19] MEDS: MORPHINE SULFATE 2 MG/ML CPJ (NOT FOR IM USE) IV PRN ×2 (09:02→15:24)
[2019-06-19] MEDS: ENOXAPARIN 30MG/0.3ML SYR SUBCUT SCH ×2 (09:08→21:51)
[2019-06-19 12:16] LABS: BG BASE EXCESS 1.1 mmol/L (-2.0-2.0); BG CARBOXYHEMOGLOBIN 0.4 % (0.5-1.5); BG DEOXYHEMOGLOBIN 10.7 % (0.0-5.0); BG HCO3 ACT 24.9 mmol/L (22.0-26.0); BG METHEMOGLOBIN 0.1 % (0.0-1.5); BG OXYGEN SATURATION 89.2 % (92.0-98.5); BG OXYHEMOGLOBIN 88.8 % (94.0-97.0); BG PCO2 36.8 mmHg (35.0-45.0); BG PH 7.449 (7.350-7.450); BG PO2 54.9 mmHg (75.0-100.0); BG SAMPLE SITE RIGHT BRACHIAL; BG TOTAL HEMOGLOBIN 11.2 g/dL (12.0-18.0); BG VENT MODE ROOM AIR
[2019-06-19] MEDS: ACETYLCYSTEINE 100MG/ML 10% VIAL 4ML INH SCH ×2 (13:08→20:36)
[2019-06-19] MEDS: HYDRALAZINE 20MG/ML VIAL IV PRN (14:38)
[2019-06-19] MEDS: ATORVASTATIN CALCIUM 40MG TABLET PO SCH (21:44)
[2019-06-19] MEDS: TRAZODONE HCL 50MG TABLET PO SCH (21:44)
[2019-06-19] MEDS: LATANOPROST 0.005% OPHTH DROPS 2.5ML EACHEYE SCH (21:44)
[2019-06-19] MEDS: FAMOTIDINE 20MG TABLET PO SCH (21:44)
[2019-06-19] MEDS: LETROZOLE 2.5MG TABLET PO SCH (21:44)
[2019-06-19] MEDS: LORAZEPAM 0.5MG TABLET PO PRN (23:35)
[2019-06-20] VITALS (12 sets, daily range): BP systolic 136–199; BP diastolic 47–86
[2019-06-20] MEDS: IPRATROPIUM/ALBUTEROL 0.5-3(2.5)MG/3ML NEB NEB SCH ×4 (01:24→20:59)
[2019-06-20] MEDS: HYDROCODONE/ACETAMINOPHEN 5/325MG TABLET PO PRN ×2 (04:16→11:06)
[2019-06-20] MEDS: PIPERACILLIN/TAZOBACTAM 3.375 G in DEXT 5% WATER 100 ML IV SCH ×5 (04:17→22:25)
[2019-06-20] MEDS: BLOOD SUGAR DIAGNOSTIC STRIP TEST SCH ×4 (05:55→22:25)
[2019-06-20] MEDS: ASPIRIN 81MG EC TABLET PO SCH (07:56)
[2019-06-20] MEDS: AMLODIPINE 5MG TABLET PO SCH (07:56)
[2019-06-20] MEDS: SPIRONOLACTONE 25MG TABLET PO SCH (07:56)
[2019-06-20] MEDS: ENOXAPARIN 30MG/0.3ML SYR SUBCUT SCH ×2 (07:59→22:35)
[2019-06-20] MEDS: INSULIN LISPRO 100 UNITS/ML SUBCUT SCH ×4 (08:00→22:25)
[2019-06-20] MEDS: METHYLPREDNISOLONE SOD SUCC 40 MG/ML VIAL IV SCH ×2 (08:01→22:23)
[2019-06-20] MEDS: AMLODIPINE 10MG TABLET PO SCH (08:08)
[2019-06-20] MEDS: MORPHINE SULFATE 2 MG/ML CPJ (NOT FOR IM USE) IV PRN (08:43)
[2019-06-20] MEDS: HYDRALAZINE 20MG/ML VIAL IV PRN (09:09)
[2019-06-20] MEDS ORDERED: AMLODIPINE 5MG TABLET PO NR (09:15)
[2019-06-20] MEDS: ACETYLCYSTEINE 100MG/ML 10% VIAL 4ML INH SCH ×2 (10:02→22:25)
[2019-06-20] MEDS ORDERED: HYDRALAZINE HCL 50MG TABLET PO SCH (11:00)
[2019-06-20 12:33] LABS: BG BASE EXCESS 3.4 mmol/L (-2.0-2.0); BG CARBOXYHEMOGLOBIN 0.2 % (0.5-1.5); BG DEOXYHEMOGLOBIN 8.2 % (0.0-5.0); BG FRACTION INSPIRED OXYGEN 21; BG HCO3 ACT 26.3 mmol/L (22.0-26.0); BG METHEMOGLOBIN 0.3 % (0.0-1.5); BG OXYGEN SATURATION 91.8 % (92.0-98.5); BG OXYHEMOGLOBIN 91.3 % (94.0-97.0); BG PCO2 34.4 mmHg (35.0-45.0); BG PH 7.502 (7.350-7.450); BG PO2 55.6 mmHg (75.0-100.0); BG SAMPLE SITE RIGHT BRACHIAL; BG TOTAL HEMOGLOBIN 12.2 g/dL (12.0-18.0); BG VENT MODE ROOM AIR
[2019-06-20] MEDS ORDERED: IPRA3AMP9 NEB (13:12)
[2019-06-20] MEDS ORDERED: P20 PO (13:12)
[2019-06-20] MEDS ORDERED: FAMO-135 PO (13:12)
[2019-06-20] MEDS ORDERED: HYDR-4135 MT (13:12)
[2019-06-20] MEDS: HYDROCODONE/ACETAMINOPHEN 10/325MG TABLET PO PRN ×2 (16:24→22:53)
[2019-06-20] MEDS: LATANOPROST 0.005% OPHTH DROPS 2.5ML EACHEYE SCH (22:23)
[2019-06-20] MEDS: TRAZODONE HCL 50MG TABLET PO SCH (22:24)
[2019-06-20] MEDS: FAMOTIDINE 20MG TABLET PO SCH (22:24)
[2019-06-20] MEDS: HYDRALAZINE HCL 50MG TABLET PO SCH (22:24)
[2019-06-20] MEDS: LETROZOLE 2.5MG TABLET PO SCH (22:25)
[2019-06-20] MEDS: ATORVASTATIN CALCIUM 40MG TABLET PO SCH (22:25)
[2019-06-21] VITALS (9 sets, daily range): BP systolic 136–169; BP diastolic 57–73
[2019-06-21] MEDS: IPRATROPIUM/ALBUTEROL 0.5-3(2.5)MG/3ML NEB NEB SCH ×2 (00:54→09:20)
[2019-06-21] MEDS: ACETYLCYSTEINE 100MG/ML 10% VIAL 4ML INH SCH ×2 (00:54→09:19)
[2019-06-21] MEDS: PIPERACILLIN/TAZOBACTAM 3.375 G in DEXT 5% WATER 100 ML IV SCH ×2 (03:28→08:24)
[2019-06-21] MEDS: MORPHINE SULFATE 2 MG/ML CPJ (NOT FOR IM USE) IV PRN (03:56)
[2019-06-21] MEDS: BLOOD SUGAR DIAGNOSTIC STRIP TEST SCH ×2 (06:31→12:42)
[2019-06-21] MEDS: HYDROCODONE/ACETAMINOPHEN 10/325MG TABLET PO PRN ×2 (06:33→11:53)
[2019-06-21] MEDS: ASPIRIN 81MG EC TABLET PO SCH (08:17)
[2019-06-21] MEDS: METHYLPREDNISOLONE SOD SUCC 40 MG/ML VIAL IV SCH (08:17)
[2019-06-21] MEDS: ENOXAPARIN 30MG/0.3ML SYR SUBCUT SCH (08:17)
[2019-06-21] MEDS: AMLODIPINE 10MG TABLET PO SCH (08:19)
[2019-06-21] MEDS: HYDRALAZINE HCL 50MG TABLET PO SCH (08:19)
[2019-06-21] MEDS: INSULIN LISPRO 100 UNITS/ML SUBCUT SCH ×2 (08:20→12:52)
[2019-06-21] MEDS: SPIRONOLACTONE 25MG TABLET PO SCH (08:20)
[2019-06-21] MEDS ORDERED: HYDRALAZINE HCL 50MG TABLET PO NR (11:30)
[2019-06-21] MEDS ORDERED: LOSARTAN POTASSIUM 25 MG TABLET PO SCH (11:30)
[2019-06-21] MEDS ORDERED: HYDRALAZINE HCL 50MG TABLET PO SCH (17:00)
== END 2019-06-21 14:36 | disposition home or self-care (01) | DRG 189 ==
LOC: ER 09:40 → 3WST 13:41 → EDBEDREQ 13:51 → ENRESERV 14:52
PROVIDERS: ADMIT Internal Medicine; ATTEND Internal Medicine
PROC: 5A09357 Assistance with Respiratory Ventilation, Less than 24 Consecutive Hours, Continuous Positive Airway Pressure (ICD-10-PCS; principal; 2019-06-19)
DX: J96.00 Acute respiratory failure, unspecified whether with hypoxia or hypercapnia (principal); J45.901 Unspecified asthma with (acute) exacerbation; F11.20 Opioid dependence, uncomplicated; E66.2 Morbid (severe) obesity with alveolar hypoventilation; Z68.41 Body mass index [BMI] 40.0-44.9, adult; R65.10 Systemic inflammatory response syndrome (SIRS) of non-infectious origin without acute organ dysfunction; I11.9 Hypertensive heart disease without heart failure; E11.9 Type 2 diabetes mellitus without complications; E78.5 Hyperlipidemia, unspecified; I25.10 Atherosclerotic heart disease of native coronary artery without angina pectoris; Z96.652 Presence of left artificial knee joint; D64.9 Anemia, unspecified; Z79.899 Other long term (current) drug therapy; Z85.3 Personal history of malignant neoplasm of breast; Z79.811 Long term (current) use of aromatase inhibitors
CPT/HCPCS: 36415; 36600; 71045; 78580; 80048; 80053; 80061; 81003; 82375; 82550; 82553; 82805; 82962; 83036; 83880; 84439; 84443; 84484; 85025; 85027; 87804; 93005; 93970; 94618; 94640; 94644; 96374; 97116; 97162; 97530; 99285; J0360; J1650; J1815; J2270; J2543; J2920; J2930; J7060; J7608

== ENCOUNTER 2020-02-16 09:36 | Inpatient (IN) | payer MEDICARE, MEDICAID ==
[~2020-02-16] VITALS: Ht 167.6 cm; Wt 110.7 kg
[~2020-02-16 09:36] MED LIST changes: +FAMO-135 PO; +HYDR-4135 MT; +P20 PO
[2020-02-16] MEDS ORDERED: METHYLPREDNISOLONE SOD SUCC 125 MG/2 ML VIAL IV STA (10:08)
[2020-02-16] MEDS ORDERED: ALBUTEROL (0.083%) 2.5MG/3ML NEB HHN STA (10:08)
[2020-02-16 11:48] LABS: HEMOGLOBIN. 10.7 g/dL (12.0-16.0); MEAN CORPUSCULAR HEMOGLOBIN 28.9 pg (28.0-32.0); MEAN CORPUSCULAR VOLUME 89.3 fL (81.0-99.0); MEAN PLATELET VOLUME 9.3 fl (7.4-10.4); PLATELET 225 x1000/uL (130-400); RED CELL DISTRIBUTION WIDTH 14.2 % (11.6-14.6)
[2020-02-16 11:52] LABS: CHLORIDE 104 mEq/L (98-107)
[2020-02-16 12:19] LABS: PLATELET ESTIMATE NORMAL
[2020-02-16] MEDS ORDERED: ASPIRIN 81MG TABLET PO ONE (13:15)
[2020-02-16] MEDS ORDERED: FUROSEMIDE 40MG/4ML VIAL IV ONE (13:15)
[2020-02-16] MEDS ORDERED: LORAZEPAM 0.5MG TABLET PO PRN (14:30)
[2020-02-16] MEDS ORDERED: DOCUSATE SODIUM 100MG CAPSULE PO PRN (14:30)
[2020-02-16] MEDS ORDERED: NA PHOS,M-B/NA PHOS,DI-BA ENEMA 118ML PR PRN (14:30)
[2020-02-16] MEDS ORDERED: DIPHENHYDRAMINE 50MG/ML VIAL IV PRN (14:30)
[2020-02-16] MEDS ORDERED: DEXTROSE 50% WATER 50ML SYRINGE IV PRN (14:30)
[2020-02-16] MEDS ORDERED: CLONIDINE 0.1MG TABLET PO PRN (14:30)
[2020-02-16] MEDS ORDERED: ACETAMINOPHEN 325MG TABLET PO PRN (14:30)
[2020-02-16] MEDS ORDERED: ACETAMINOPHEN 650MG SUPP PR PRN (14:30)
[2020-02-16] MEDS ORDERED: MAGNESIUM/ALUMINUM HYDROXIDE/SIMETHICONE 30ML UDC PO PRN (14:30)
[2020-02-16] MEDS ORDERED: ONDANSETRON HCL 4MG/2ML INJ IV PRN (14:30)
[2020-02-16] MEDS ORDERED: GUAIFENESIN 200MG/10ML SUGAR FREE UDC PO PRN (14:30)
[2020-02-16] MEDS ORDERED: IPRATROPIUM/ALBUTEROL 0.5-3(2.5)MG/3ML NEB NEB PRN (14:30)
[2020-02-16 15:23] LABS: CLARITY URINE CLEAR (CLEAR); COLOR URINE YELLOW (YELLOW); KETONES URINE NEGATIVE (NEGATIVE); LEUKOCYTE ESTERASE URINE NEGATIVE (NEGATIVE); NITRITE URINE NEGATIVE (NEGATIVE); OCCULT BLOOD URINE NEGATIVE (NEGATIVE); PROTEIN URINE NEGATIVE (NEGATIVE); SPECIFIC GRAVITY URINE 1.011 (1.005-1.030); UROBILINOGEN URINE 0.2 E.U./dL (0.2-1.0)
[2020-02-16] MEDS ORDERED: CEFTRIAXONE 1 G PREMIX 50 ML IV SCH (15:30)
[2020-02-16 15:32] LABS: BG BASE EXCESS 5.4 mmol/L (-2.0-2.0); BG CARBOXYHEMOGLOBIN 0.7 % (0.5-1.5); BG DEOXYHEMOGLOBIN 2.9 % (0.0-5.0); BG HCO3 ACT 30.7 mmol/L (22.0-26.0); BG OXYHEMOGLOBIN 95.4 % (94.0-97.0); BG PCO2 48.2 mmHg (35.0-45.0); BG PH 7.422 (7.350-7.450); BG PO2 90.8 mmHg (75.0-100.0); BG SAMPLE SITE RIGHT RADIAL; BG TOTAL HEMOGLOBIN 11.9 g/dL (12.0-18.0); BG VENT MODE MASK - BIPAP
[2020-02-16] MEDS ORDERED: AZITHROMYCIN 500 MG in DEXT 5% WATER 250 ML IV SCH (16:00)
[2020-02-16 16:47] LABS: *AMPHETAMINES SCREEN URINE NEGATIVE (NEGATIVE); *BARBITURATES SCREEN URINE NEGATIVE (NEGATIVE); *BENZODIAZEPINES SCREEN URINE NEGATIVE (NEGATIVE); *COCAINE SCREEN URINE NEGATIVE (NEGATIVE); METHADONE URINE SCREEN NEGATIVE (NEGATIVE); OPIATES URINE SCREEN PRESUMTIVE POSITIVE (NEGATIVE); PHENCYCLIDINE URINE SCREEN NEGATIVE (NEGATIVE)
[2020-02-16 16:48] LABS: CANNABINOID URINE SCREEN NEGATIVE (NEGATIVE)
[2020-02-16] MEDS: FAMOTIDINE 20MG/2ML VIAL IV SCH (17:20)
[2020-02-16] MEDS: BLOOD SUGAR DIAGNOSTIC STRIP TEST SCH ×2 (18:05→21:17)
[2020-02-16] MEDS: INSULIN LISPRO 100 UNITS/ML SUBCUT SCH ×2 (18:20→21:23)
[2020-02-16] MEDS: METHYLPREDNISOLONE SOD SUCC 40 MG/ML VIAL IV SCH (20:04)
[2020-02-16] MEDS: ENOXAPARIN 30MG/0.3ML SYR SUBCUT SCH (21:23)
[2020-02-16] MEDS ORDERED: IOHEXOL-350 100 ML BOTTLE ONE (21:41)
[2020-02-17 00:59] LABS: CREATINE KINASE MB FRACTION 4.4 ng/mL (0.5-3.6)
[2020-02-17] MEDS: METHYLPREDNISOLONE SOD SUCC 40 MG/ML VIAL IV SCH ×3 (04:00→20:06)
[2020-02-17 05:16] LABS: HEMATOCRIT. 32.3 % (36.0-48.0); HEMOGLOBIN. 10.6 g/dL (12.0-16.0); MEAN CORPUSCULAR VOLUME 88.5 fL (81.0-99.0); MEAN PLATELET VOLUME 8.6 fl (7.4-10.4); PLATELET 218 x1000/uL (130-400); RED BLOOD CELL COUNT 3.65 mill/uL (4.2-5.4); RED CELL DISTRIBUTION WIDTH 14.1 % (11.6-14.6)
[2020-02-17 05:35] LABS: CHLORIDE 99 mEq/L (98-107)
[2020-02-17 05:42] LABS: LDL CHOLESTEROL 86 mg/dL (5-100)
[2020-02-17 05:43] LABS: HDL CHOLESTEROL 69 mg/dL (40-59)
[2020-02-17 05:45] LABS: CREATINE KINASE 79 IU/L (26-192); CREATINE KINASE MB FRACTION 3.4 ng/mL (0.5-3.6); T4 FREE 0.82 ng/dL (0.76-1.46)
[2020-02-17] MEDS: BLOOD SUGAR DIAGNOSTIC STRIP TEST SCH ×4 (07:33→21:14)
[2020-02-17] MEDS: INSULIN LISPRO 100 UNITS/ML SUBCUT SCH ×4 (07:38→21:14)
[2020-02-17] MEDS: ALBUTEROL 6.7GM HFA INHALER ORI SCH ×2 (11:06→11:07)
[2020-02-17 11:32] LABS: PLATELET ESTIMATE NORMAL
[2020-02-17] MEDS: ENOXAPARIN 30MG/0.3ML SYR SUBCUT SCH ×2 (12:00→21:13)
[2020-02-17] MEDS: ASPIRIN 81MG TABLET PO SCH (12:00)
[2020-02-17] MEDS: FUROSEMIDE 40MG/4ML VIAL IVP SCH (12:00)
[2020-02-17] MEDS ORDERED: INSULIN GLARGINE UD 100 UNITS/ML SYR SUBCUT SCH (13:30)
[2020-02-17] MEDS: FAMOTIDINE 20MG/2ML VIAL IV SCH (13:35)
[2020-02-17 15:48] LABS: INR 1.1; PROTHROMBIN TIME 11.4 sec (9.6-11.0)
[2020-02-17 16:30] VITALS: BP 139/62
[2020-02-17 17:27] VITALS: BP 139/62
[2020-02-17] MEDS ORDERED: CEFTRIAXONE 1,000 MG in DEXTROSE 5% WATER 50 ML IV SCH (18:00)
[2020-02-17 20:00] VITALS: BP 128/57
[2020-02-17] MEDS: IPRATROPIUM/ALBUTEROL 0.5-3(2.5)MG/3ML NEB HHN SCH (21:11)
[2020-02-17] MEDS: LETROZOLE 2.5MG TABLET PO SCH (21:23)
[2020-02-18] VITALS: BP 130/60
[2020-02-18] MEDS: IPRATROPIUM/ALBUTEROL 0.5-3(2.5)MG/3ML NEB HHN SCH ×4 (02:51→21:44)
[2020-02-18] MEDS: METHYLPREDNISOLONE SOD SUCC 40 MG/ML VIAL IV SCH ×3 (03:45→20:22)
[2020-02-18 04:00] VITALS: BP 130/64
[2020-02-18] MEDS ORDERED: *PATIENT'S OWN MEDICATION STORAGE XX SCH (04:45)
[2020-02-18] MEDS: INSULIN LISPRO 100 UNITS/ML SUBCUT SCH ×4 (06:16→22:06)
[2020-02-18] MEDS: BLOOD SUGAR DIAGNOSTIC STRIP TEST SCH ×4 (06:17→21:00)
[2020-02-18 06:31] LABS: HEMATOCRIT. 35.2 % (36.0-48.0); HEMOGLOBIN. 11.3 g/dL (12.0-16.0); MEAN CORPUSCULAR HEMOGLOBIN 28.7 pg (28.0-32.0); MEAN CORPUSCULAR VOLUME 89.3 fL (81.0-99.0); PLATELET 194 x1000/uL (130-400); RED BLOOD CELL COUNT 3.94 mill/uL (4.2-5.4); RED CELL DISTRIBUTION WIDTH 14.3 % (11.6-14.6)
[2020-02-18 08:00] VITALS: BP 149/82
[2020-02-18] MEDS: FUROSEMIDE 40MG/4ML VIAL IVP SCH (08:57)
[2020-02-18] MEDS: FAMOTIDINE 20MG/2ML VIAL IV SCH (08:57)
[2020-02-18] MEDS: ENOXAPARIN 30MG/0.3ML SYR SUBCUT SCH ×2 (08:57→22:05)
[2020-02-18] MEDS: ASPIRIN 81MG TABLET PO SCH (08:57)
[2020-02-18] MEDS: AZITHROMYCIN 500 MG TABLET PO SCH (08:58)
[2020-02-18] MEDS ORDERED: INSULIN GLARGINE UD 100 UNITS/ML SYR SUBCUT SCH (10:00)
[2020-02-18] MEDS: LETROZOLE 2.5MG TABLET PO SCH (10:49)
[2020-02-18] MEDS: HYDROCODONE/ACETAMINOPHEN 5/325MG TABLET PO PRN ×2 (10:52→20:23)
[2020-02-18 12:00] VITALS: BP 167/73
[2020-02-18 16:00] VITALS: BP 137/46
[2020-02-18 20:00] VITALS: BP 160/64
[2020-02-18 20:06] LABS: PLATELET ESTIMATE NORMAL
[2020-02-18 20:08] LABS: MEAN PLATELET VOLUME 10.4 fl (7.4-10.4)
[2020-02-18] MEDS: CEFTRIAXONE 1,000 MG in DEXTROSE 5% WATER 50 ML IV SCH (20:22)
[2020-02-19] VITALS: BP 151/62
[2020-02-19] MEDS: IPRATROPIUM/ALBUTEROL 0.5-3(2.5)MG/3ML NEB HHN SCH ×4 (01:51→20:46)
[2020-02-19] MEDS: HYDROCODONE/ACETAMINOPHEN 5/325MG TABLET PO PRN ×2 (02:53→20:56)
[2020-02-19] MEDS: METHYLPREDNISOLONE SOD SUCC 40 MG/ML VIAL IV SCH ×2 (03:30→20:46)
[2020-02-19 04:00] VITALS: BP 155/69
[2020-02-19] MEDS: BLOOD SUGAR DIAGNOSTIC STRIP TEST SCH ×4 (06:25→20:48)
[2020-02-19] MEDS: INSULIN LISPRO 100 UNITS/ML SUBCUT SCH ×4 (06:25→20:48)
[2020-02-19 07:16] LABS: TOTAL IRON BINDING CAPACITY 468 ug/dL (250-450)
[2020-02-19 08:00] VITALS: BP 138/73
[2020-02-19 08:47] LABS: VITAMIN B12 SERUM 553 pg/mL (211-911)
[2020-02-19] MEDS: ENOXAPARIN 30MG/0.3ML SYR SUBCUT SCH ×2 (08:57→20:46)
[2020-02-19] MEDS: FAMOTIDINE 20MG/2ML VIAL IV SCH (08:58)
[2020-02-19] MEDS: FUROSEMIDE 40MG/4ML VIAL IVP SCH (08:58)
[2020-02-19] MEDS: AZITHROMYCIN 500 MG TABLET PO SCH (08:58)
[2020-02-19] MEDS: ASPIRIN 81MG TABLET PO SCH (08:58)
[2020-02-19] MEDS: LETROZOLE 2.5MG TABLET PO SCH (09:01)
[2020-02-19] MEDS ORDERED: INSULIN GLARGINE UD 100 UNITS/ML SYR SUBCUT SCH (10:00)
[2020-02-19] MEDS ORDERED: INSULIN GLARGINE UD 100 UNITS/ML SYR SUBCUT NR (12:00)
[2020-02-19] MEDS ORDERED: CYANOCOBALAMIN 1000MCG/ML VIAL IM NR (15:00)
[2020-02-19] MEDS ORDERED: P20 PO (15:02)
[2020-02-19] MEDS ORDERED: IPRA3AMP9 NEB (15:02)
[2020-02-19] MEDS ORDERED: LEVO500T2 PO (15:02)
[2020-02-19] MEDS ORDERED: SPIR25TA6 MT (15:02)
[2020-02-19 16:00] VITALS: BP 135/63
[2020-02-19 20:00] VITALS: BP 160/83
[2020-02-19] MEDS: CEFTRIAXONE 1,000 MG in DEXTROSE 5% WATER 50 ML IV SCH (20:46)
[2020-02-20] VITALS: BP 134/68
[2020-02-20] MEDS: IPRATROPIUM/ALBUTEROL 0.5-3(2.5)MG/3ML NEB HHN SCH (01:26)
[2020-02-20 04:00] VITALS: BP 148/87
[2020-02-20] MEDS: BLOOD SUGAR DIAGNOSTIC STRIP TEST SCH ×3 (06:20→17:10)
[2020-02-20] MEDS: INSULIN LISPRO 100 UNITS/ML SUBCUT SCH ×3 (06:20→17:40)
[2020-02-20 08:00] VITALS: BP 184/89
[2020-02-20] MEDS: METHYLPREDNISOLONE SOD SUCC 40 MG/ML VIAL IV SCH (08:00)
[2020-02-20] MEDS: FAMOTIDINE 20MG/2ML VIAL IV SCH (09:07)
[2020-02-20] MEDS: LETROZOLE 2.5MG TABLET PO SCH (09:07)
[2020-02-20] MEDS: AZITHROMYCIN 500 MG TABLET PO SCH (09:07)
[2020-02-20] MEDS: FUROSEMIDE 40MG/4ML VIAL IVP SCH (09:07)
[2020-02-20] MEDS: ASPIRIN 81MG TABLET PO SCH (09:07)
[2020-02-20] MEDS: ENOXAPARIN 30MG/0.3ML SYR SUBCUT SCH (09:08)
[2020-02-20] MEDS ORDERED: INSULIN GLARGINE UD 100 UNITS/ML SYR SUBCUT SCH (10:00)
[2020-02-20] MEDS: NYSTATIN 100,000 UNITS/ML 5ML UDC SSW SCH ×3 (10:48→18:00)
[2020-02-20 11:04] VITALS: BP_SYST 125; BP_SYST 145; BP_DIAS 74; BP_DIAS 89
[2020-02-20 12:00] VITALS: BP 125/74
[2020-02-20] MEDS ORDERED: INSULIN GLARGINE UD 100 UNITS/ML SYR SUBCUT NR (12:00)
[2020-02-20 16:00] VITALS: BP 162/82
== END 2020-02-20 19:22 | disposition home or self-care (01) | DRG 189 ==
LOC: ER 09:36 → EDBEDREQ 13:12 → EDBEDREQTM 13:12 → EDBEDREQSVC 15:16 → EDBEDREQ 15:16 → MICUSO 15:18 → EDBEDREQTM 15:21 → EDBEDREQ 15:21 → 8WST 02-17 14:40
PROVIDERS: ADMIT Internal Medicine; ATTEND Internal Medicine
PROC: 5A09357 Assistance with Respiratory Ventilation, Less than 24 Consecutive Hours, Continuous Positive Airway Pressure (ICD-10-PCS; principal; 2020-02-16)
DX: J96.20 Acute and chronic respiratory failure, unspecified whether with hypoxia or hypercapnia (principal); I21.4 Non-ST elevation (NSTEMI) myocardial infarction; J18.9 Pneumonia, unspecified organism; I50.33 Acute on chronic diastolic (congestive) heart failure; J45.901 Unspecified asthma with (acute) exacerbation; J44.0 Chronic obstructive pulmonary disease with (acute) lower respiratory infection; E66.2 Morbid (severe) obesity with alveolar hypoventilation; F11.20 Opioid dependence, uncomplicated; I25.10 Atherosclerotic heart disease of native coronary artery without angina pectoris; E87.5 Hyperkalemia; I11.0 Hypertensive heart disease with heart failure; D64.9 Anemia, unspecified; E11.65 Type 2 diabetes mellitus with hyperglycemia; E78.5 Hyperlipidemia, unspecified; Z68.39 Body mass index [BMI] 39.0-39.9, adult; D72.829 Elevated white blood cell count, unspecified; R74.01 Elevation of levels of liver transaminase levels; B35.1 Tinea unguium; B37.9 Candidiasis, unspecified; E11.40 Type 2 diabetes mellitus with diabetic neuropathy, unspecified; I89.0 Lymphedema, not elsewhere classified; L03.031 Cellulitis of right toe; L60.0 Ingrowing nail; Z20.828 Contact with and (suspected) exposure to other viral communicable diseases; Z96.652 Presence of left artificial knee joint; L60.3 Nail dystrophy; Z79.811 Long term (current) use of aromatase inhibitors; Z79.82 Long term (current) use of aspirin; Z79.899 Other long term (current) drug therapy; Z85.3 Personal history of malignant neoplasm of breast; Z87.891 Personal history of nicotine dependence; Z91.040 Latex allergy status
CPT/HCPCS: 36415; 36600; 71045; 78580; 80048; 80053; 80061; 80305; 81003; 82375; 82550; 82553; 82607; 82805; 82962; 83036; 83540; 83550; 83880; 84439; 84443; 84484; 85025; 87635; 93005; 93306; 93970; 94660; 97162; 99291; C1893; J0456; J0696; J1650; J1815; J1940; J2920; J2930; J3420; J3490; J7060; Q9967

== ENCOUNTER 2020-03-20 09:34 | Inpatient (IN) | payer MEDICARE, MEDICAID ==
[~2020-03-20] VITALS: Ht 162.6 cm; Wt 123.4 kg
[~2020-03-20 09:34] MED LIST changes: +LEVO500T2 PO; +SPIR25TA6 MT
[2020-03-20] MEDS ORDERED: ALBUTEROL (0.083%) 2.5MG/3ML NEB HHN STA (09:59)
[2020-03-20] MEDS ORDERED: PREDNISONE 20MG TABLET PO STA (09:59)
[2020-03-20] MEDS ORDERED: IPRATROPIUM BROMIDE (0.02%) 0.5MG/2.5ML NEB HHN STA (09:59)
[2020-03-20 10:57] LABS: HEMATOCRIT. 36.3 % (36.0-48.0); HEMOGLOBIN. 11.6 g/dL (12.0-16.0); MEAN CORPUSCULAR HEMOGLOBIN 28.5 pg (28.0-32.0); MEAN CORPUSCULAR VOLUME 89.3 fL (81.0-99.0); MEAN PLATELET VOLUME 8.4 fl (7.4-10.4); PLATELET 343 x1000/uL (130-400); RED BLOOD CELL COUNT 4.07 mill/uL (4.2-5.4); RED CELL DISTRIBUTION WIDTH 15.6 % (11.6-14.6)
[2020-03-20 11:04] LABS: CHLORIDE 108 mEq/L (98-107)
[2020-03-20 11:47] LABS: ATYPICAL LYMPHOCYTES 1; PLATELET ESTIMATE NORMAL
[2020-03-20] MEDS ORDERED: FUROSEMIDE 40MG TABLET PO ONE (12:30)
[2020-03-20] MEDS ORDERED: ALBUTEROL 6.7GM HFA INHALER ORI ONE (13:00)
[2020-03-20] MEDS ORDERED: ASPIRIN 325MG EC TABLET PO ONE (13:15)
[2020-03-20] MEDS ORDERED: IPRATROPIUM/ALBUTEROL 0.5-3(2.5)MG/3ML NEB HHN PRN (15:15)
[2020-03-20] MEDS ORDERED: ACETAMINOPHEN 325MG TABLET PO PRN (15:15)
[2020-03-20] MEDS ORDERED: HYDROCODONE/ACETAMINOPHEN 5/325MG TABLET PO PRN (15:15)
[2020-03-20] MEDS ORDERED: ONDANSETRON HCL 4MG/2ML INJ IV PRN (15:15)
[2020-03-20] MEDS ORDERED: CLONIDINE 0.1MG TABLET PO PRN (15:15)
[2020-03-20] MEDS ORDERED: DEXTROSE 50% WATER 50ML SYRINGE IV PRN (15:30)
[2020-03-20] MEDS ORDERED: LEVOFLOXACIN 750MG PREMIX 150ML IV NR (15:30)
[2020-03-20] MEDS: BLOOD SUGAR DIAGNOSTIC STRIP TEST SCH ×2 (17:00→23:32)
[2020-03-20] MEDS: ENOXAPARIN 40MG/0.4ML SYR SUBCUT SCH (18:11)
[2020-03-20] MEDS: INSULIN LISPRO 100 UNITS/ML SUBCUT SCH ×2 (19:19→23:31)
[2020-03-21 00:30] VITALS: BP 150/83
[2020-03-21] MEDS: ENOXAPARIN 40MG/0.4ML SYR SUBCUT SCH ×2 (04:50→16:00)
[2020-03-21] MEDS: BLOOD SUGAR DIAGNOSTIC STRIP TEST SCH ×4 (06:16→21:00)
[2020-03-21] MEDS: INSULIN LISPRO 100 UNITS/ML SUBCUT SCH ×4 (06:50→22:16)
[2020-03-21 07:28] LABS: HEMATOCRIT. 36.2 % (36.0-48.0); HEMOGLOBIN. 11.5 g/dL (12.0-16.0); MEAN CORPUSCULAR HEMOGLOBIN 28.2 pg (28.0-32.0); MEAN CORPUSCULAR VOLUME 89.2 fL (81.0-99.0); MEAN PLATELET VOLUME 9.1 fl (7.4-10.4); PLATELET 323 x1000/uL (130-400); RED BLOOD CELL COUNT 4.06 mill/uL (4.2-5.4); RED CELL DISTRIBUTION WIDTH 15.7 % (11.6-14.6)
[2020-03-21 07:40] LABS: CHLORIDE 105 mEq/L (98-107)
[2020-03-21 07:47] LABS: LDL CHOLESTEROL 87 mg/dL (5-100)
[2020-03-21 07:49] LABS: CREATINE KINASE 47 IU/L (26-192); HDL CHOLESTEROL 38 mg/dL (40-59)
[2020-03-21] MEDS: ASPIRIN 81MG EC TABLET PO SCH (08:31)
[2020-03-21 09:48] VITALS: BP 124/71
[2020-03-21] MEDS ORDERED: LEVOFLOXACIN 500MG PREMIX 100 ML IV SCH (11:00)
[2020-03-21 12:35] LABS: PLATELET ESTIMATE NORMAL
[2020-03-21] MEDS: FUROSEMIDE 40MG/4ML VIAL IVP SCH ×2 (13:00→14:05)
[2020-03-21 13:33] VITALS: BP 129/65
[2020-03-21] MEDS ORDERED: METHYLPREDNISOLONE SOD SUCC 125 MG/2 ML VIAL IV SCH (14:00)
[2020-03-21 17:00] VITALS: BP 160/89
[2020-03-21] MEDS: LEVOFLOXACIN 500MG PREMIX 100 ML IV SCH (17:28)
[2020-03-21 20:00] VITALS: BP 165/81
[2020-03-21] MEDS: ALBUTEROL 6.7GM HFA INHALER ORI SCH (20:00)
[2020-03-21] MEDS: ATORVASTATIN CALCIUM 40MG TABLET PO SCH (22:10)
[2020-03-21] MEDS: HYDRALAZINE HCL 50MG TABLET PO SCH (22:10)
[2020-03-21] MEDS: METHYLPREDNISOLONE SOD SUCC 40 MG/ML VIAL IV SCH (22:10)
[2020-03-21] MEDS: AMLODIPINE 5MG TABLET PO SCH (22:13)
[2020-03-21] MEDS: LETROZOLE 2.5MG TABLET PO SCH (23:00)
[2020-03-22] VITALS (7 sets, daily range): BP systolic 111–150; BP diastolic 53–73
[2020-03-22] MEDS: LETROZOLE 2.5MG TABLET PO SCH ×2 (01:15→20:20)
[2020-03-22] MEDS: ALBUTEROL 6.7GM HFA INHALER ORI SCH ×3 (02:00→15:29)
[2020-03-22] MEDS: ENOXAPARIN 40MG/0.4ML SYR SUBCUT SCH (05:42)
[2020-03-22] MEDS: BLOOD SUGAR DIAGNOSTIC STRIP TEST SCH ×4 (05:42→20:09)
[2020-03-22] MEDS: METHYLPREDNISOLONE SOD SUCC 40 MG/ML VIAL IV SCH ×2 (05:42→14:06)
[2020-03-22] MEDS: INSULIN LISPRO 100 UNITS/ML SUBCUT SCH ×3 (06:25→20:21)
[2020-03-22 09:36] LABS: CHLORIDE 106 mEq/L (98-107)
[2020-03-22] MEDS: HYDRALAZINE HCL 50MG TABLET PO SCH ×3 (10:33→17:00)
[2020-03-22] MEDS: AMLODIPINE 5MG TABLET PO SCH (10:34)
[2020-03-22] MEDS: ASPIRIN 81MG EC TABLET PO SCH (10:34)
[2020-03-22] MEDS: SPIRONOLACTONE 25MG TABLET PO SCH (10:36)
[2020-03-22] MEDS ORDERED: CLONIDINE 0.2MG TABLET PO PRN (10:45)
[2020-03-22] MEDS ORDERED: DILTIAZEM HCL 5MG/ML 5ML VIAL IV NR (11:00)
[2020-03-22] MEDS ORDERED: ENOXAPARIN 80MG/0.8ML SYR SUBCUT NR (11:15)
[2020-03-22] MEDS ORDERED: FUROSEMIDE 40MG/4ML VIAL IVP NR (11:30)
[2020-03-22] MEDS ORDERED: AMIODARONE HCL 150 MG in DEXT 5% WATER 97 ML IV NR (12:00)
[2020-03-22] MEDS ORDERED: MAGNESIUM 2 G PREMIX 50 ML IV NR (12:30)
[2020-03-22] MEDS: DILTIAZEM HCL 60MG TABLET PO SCH ×3 (14:06→23:54)
[2020-03-22 15:01] LABS: INR 1.2; PROTHROMBIN TIME 12.3 sec (9.6-11.0)
[2020-03-22 15:58] LABS: BG BASE EXCESS 0.9 mmol/L (-2.0-2.0); BG CARBOXYHEMOGLOBIN 0.5 % (0.5-1.5); BG DEOXYHEMOGLOBIN 10.2 % (0.0-5.0); BG FRACTION INSPIRED OXYGEN 21; BG HCO3 ACT 24.8 mmol/L (22.0-26.0); BG METHEMOGLOBIN 0.1 % (0.0-1.5); BG OXYGEN SATURATION 89.7 % (92.0-98.5); BG OXYHEMOGLOBIN 89.2 % (94.0-97.0); BG PCO2 37.3 mmHg (35.0-45.0); BG PH 7.441 (7.350-7.450); BG PO2 56.7 mmHg (75.0-100.0); BG SAMPLE SITE RIGHT RADIAL; BG TOTAL HEMOGLOBIN 12.5 g/dL (12.0-18.0); BG VENT MODE ROOM AIR
[2020-03-22] MEDS: LEVOFLOXACIN 500MG PREMIX 100 ML IV SCH (17:42)
[2020-03-22] MEDS: FAMOTIDINE 20MG/2ML VIAL IV SCH (18:38)
[2020-03-22] MEDS: DEXAMETHASONE 10 MG/ML VIAL IV SCH (18:38)
[2020-03-22] MEDS: ATORVASTATIN CALCIUM 40MG TABLET PO SCH (20:20)
[2020-03-22] MEDS: ENOXAPARIN 120MG/0.8ML SYR SUBCUT SCH (23:54)
[2020-03-23] VITALS: BP 112/70
[2020-03-23 04:00] VITALS: BP 118/56
[2020-03-23 06:24] LABS: HEMATOCRIT. 33.7 % (36.0-48.0); HEMOGLOBIN. 10.9 g/dL (12.0-16.0); MEAN CORPUSCULAR HEMOGLOBIN 28.5 pg (28.0-32.0); MEAN CORPUSCULAR VOLUME 88.3 fL (81.0-99.0); MEAN PLATELET VOLUME 9.1 fl (7.4-10.4); PLATELET 294 x1000/uL (130-400); RED BLOOD CELL COUNT 3.82 mill/uL (4.2-5.4); RED CELL DISTRIBUTION WIDTH 15.7 % (11.6-14.6)
[2020-03-23 06:26] LABS: CHLORIDE 102 mEq/L (98-107)
[2020-03-23] MEDS: DILTIAZEM HCL 60MG TABLET PO SCH ×3 (06:30→18:04)
[2020-03-23] MEDS: BLOOD SUGAR DIAGNOSTIC STRIP TEST SCH ×4 (06:30→21:54)
[2020-03-23] MEDS: INSULIN LISPRO 100 UNITS/ML SUBCUT SCH ×4 (06:31→21:37)
[2020-03-23] MEDS: ENOXAPARIN 120MG/0.8ML SYR SUBCUT SCH (09:00)
[2020-03-23] MEDS: FAMOTIDINE 20MG/2ML VIAL IV SCH (09:00)
[2020-03-23] MEDS: ALBUTEROL 6.7GM HFA INHALER ORI SCH ×3 (09:00→21:38)
[2020-03-23] MEDS: DEXAMETHASONE 10 MG/ML VIAL IV SCH (09:01)
[2020-03-23] MEDS: ASPIRIN 81MG EC TABLET PO SCH (09:01)
[2020-03-23] MEDS: SPIRONOLACTONE 25MG TABLET PO SCH (09:01)
[2020-03-23] MEDS: HYDRALAZINE HCL 50MG TABLET PO SCH ×3 (09:01→18:03)
[2020-03-23] MEDS ORDERED: INSULIN GLARGINE UD 100 UNITS/ML SYR SUBCUT SCH (10:00)
[2020-03-23] MEDS ORDERED: AMIODARONE HCL 200 MG TABLET PO SCH (10:30)
[2020-03-23 13:42] VITALS: BP 133/72
[2020-03-23] MEDS ORDERED: SODIUM CHLORIDE 0.9% 500 ML IV ONE (13:45)
[2020-03-23 14:54] LABS: BG BASE EXCESS 0.9 mmol/L (-2.0-2.0); BG CARBOXYHEMOGLOBIN 0.2 % (0.5-1.5); BG DEOXYHEMOGLOBIN 8.3 % (0.0-5.0); BG FRACTION INSPIRED OXYGEN 21; BG HCO3 ACT 24.4 mmol/L (22.0-26.0); BG METHEMOGLOBIN 0.3 % (0.0-1.5); BG OXYGEN SATURATION 91.7 % (92.0-98.5); BG OXYHEMOGLOBIN 91.2 % (94.0-97.0); BG PCO2 34.9 mmHg (35.0-45.0); BG PH 7.462 (7.350-7.450); BG PO2 60.1 mmHg (75.0-100.0); BG SAMPLE SITE RIGHT RADIAL; BG TOTAL HEMOGLOBIN 12.3 g/dL (12.0-18.0); BG VENT MODE ROOM AIR
[2020-03-23 15:43] LABS: ATYPICAL LYMPHOCYTES 1
[2020-03-23 15:44] LABS: PLATELET ESTIMATE NORMAL
[2020-03-23 16:00] VITALS: BP 133/72
[2020-03-23] MEDS ORDERED: CYANOCOBALAMIN 1000MCG/ML VIAL IM NR (17:43)
[2020-03-23] MEDS: ZINC SULFATE 220 MG ( 50 ) CAPSULE PO SCH (18:03)
[2020-03-23] MEDS: LEVOFLOXACIN 500MG PREMIX 100 ML IV SCH (18:06)
[2020-03-23] MEDS: ATORVASTATIN CALCIUM 40MG TABLET PO SCH (21:32)
[2020-03-23] MEDS: ASCORBIC ACID 500 MG TABLET PO SCH (21:32)
[2020-03-23] MEDS: LETROZOLE 2.5MG TABLET PO SCH (21:33)
[2020-03-23] MEDS: ENOXAPARIN 40MG/0.4ML SYR SUBCUT SCH (21:33)
[2020-03-23] MEDS: INSULIN GLARGINE UD 100 UNITS/ML SYR SUBCUT SCH (23:28)
[2020-03-24] VITALS: BP 122/57
[2020-03-24] MEDS: ALBUTEROL 6.7GM HFA INHALER ORI SCH ×4 (01:42→20:53)
[2020-03-24] MEDS: DILTIAZEM HCL 60MG TABLET PO SCH ×4 (01:42→18:00)
[2020-03-24 04:00] VITALS: BP 134/57
[2020-03-24] MEDS: BLOOD SUGAR DIAGNOSTIC STRIP TEST SCH ×4 (06:42→21:04)
[2020-03-24] MEDS: INSULIN LISPRO 100 UNITS/ML SUBCUT SCH ×4 (06:47→20:55)
[2020-03-24 06:57] LABS: CHLORIDE 104 mEq/L (98-107)
[2020-03-24 07:58] LABS: HEMATOCRIT. 32.7 % (36.0-48.0); HEMOGLOBIN. 10.5 g/dL (12.0-16.0); MEAN CORPUSCULAR HEMOGLOBIN 28.5 pg (28.0-32.0); MEAN CORPUSCULAR VOLUME 88.8 fL (81.0-99.0); MEAN PLATELET VOLUME 9.4 fl (7.4-10.4); PLATELET 242 x1000/uL (130-400); RED BLOOD CELL COUNT 3.69 mill/uL (4.2-5.4); RED CELL DISTRIBUTION WIDTH 15.6 % (11.6-14.6)
[2020-03-24 08:00] VITALS: BP 104/49
[2020-03-24] MEDS: HYDRALAZINE HCL 50MG TABLET PO SCH ×3 (09:00→17:00)
[2020-03-24] MEDS: FAMOTIDINE 20MG/2ML VIAL IV SCH (09:00)
[2020-03-24] MEDS: INSULIN GLARGINE UD 100 UNITS/ML SYR SUBCUT SCH ×2 (10:48→22:26)
[2020-03-24] MEDS: DEXAMETHASONE 10 MG/ML VIAL IV SCH (10:48)
[2020-03-24] MEDS: ZINC SULFATE 220 MG ( 50 ) CAPSULE PO SCH (10:49)
[2020-03-24] MEDS: ENOXAPARIN 40MG/0.4ML SYR SUBCUT SCH ×2 (10:49→20:54)
[2020-03-24] MEDS: ASCORBIC ACID 500 MG TABLET PO SCH ×2 (10:49→20:53)
[2020-03-24] MEDS: ASPIRIN 81MG EC TABLET PO SCH (10:49)
[2020-03-24 12:00] VITALS: BP 131/63
[2020-03-24 16:00] VITALS: BP 110/48
[2020-03-24 17:55] LABS: PLATELET ESTIMATE NORMAL
[2020-03-24] MEDS: LEVOFLOXACIN 500MG PREMIX 100 ML IV SCH (18:12)
[2020-03-24 20:00] VITALS: BP 129/82
[2020-03-24] MEDS: LETROZOLE 2.5MG TABLET PO SCH (20:53)
[2020-03-24] MEDS: ATORVASTATIN CALCIUM 40MG TABLET PO SCH (20:53)
[2020-03-24 23:57] LABS: CLARITY URINE CLEAR (CLEAR); COLOR URINE YELLOW (YELLOW); KETONES URINE NEGATIVE (NEGATIVE); LEUKOCYTE ESTERASE URINE NEGATIVE (NEGATIVE); NITRITE URINE NEGATIVE (NEGATIVE); OCCULT BLOOD URINE NEGATIVE (NEGATIVE); PH URINE 5.5 (4.5-8.0); PROTEIN URINE NEGATIVE (NEGATIVE); UROBILINOGEN URINE 0.2 E.U./dL (0.2-1.0)
[2020-03-25] VITALS (7 sets, daily range): BP systolic 111–138; BP diastolic 55–80
[2020-03-25] MEDS: DILTIAZEM HCL 60MG TABLET PO SCH ×5 (00:10→23:26)
[2020-03-25] MEDS: ALBUTEROL 6.7GM HFA INHALER ORI SCH ×3 (03:03→20:00)
[2020-03-25] MEDS: BLOOD SUGAR DIAGNOSTIC STRIP TEST SCH ×4 (06:24→21:00)
[2020-03-25] MEDS: INSULIN LISPRO 100 UNITS/ML SUBCUT SCH ×4 (06:28→23:33)
[2020-03-25] MEDS: HYDRALAZINE HCL 50MG TABLET PO SCH (09:00)
[2020-03-25 10:04] LABS: HEMATOCRIT 35.9 % (36.0-48.0); HEMOGLOBIN 11.4 g/dL (12.0-16.0); MEAN CORPUSCULAR HEMOGLOBIN 28.4 pg (28.0-32.0); MEAN CORPUSCULAR VOLUME 89.5 fL (81.0-99.0); PLATELET 143 x1000/uL (130-400); RED BLOOD CELL COUNT 4.01 mill/uL (4.2-5.4)
[2020-03-25] MEDS: ASPIRIN 81MG EC TABLET PO SCH (11:48)
[2020-03-25] MEDS: DEXAMETHASONE 10 MG/ML VIAL IV SCH (11:48)
[2020-03-25] MEDS: ASCORBIC ACID 500 MG TABLET PO SCH ×2 (11:48→23:14)
[2020-03-25] MEDS: ZINC SULFATE 220 MG ( 50 ) CAPSULE PO SCH (11:48)
[2020-03-25] MEDS: FAMOTIDINE 20MG/2ML VIAL IV SCH (11:49)
[2020-03-25] MEDS: ENOXAPARIN 40MG/0.4ML SYR SUBCUT SCH ×2 (11:56→23:14)
[2020-03-25] MEDS: INSULIN GLARGINE UD 100 UNITS/ML SYR SUBCUT SCH ×2 (11:57→23:32)
[2020-03-25] MEDS ORDERED: DEXA4TAB MT (17:12)
[2020-03-25] MEDS ORDERED: ZINC220T4 MT (17:12)
[2020-03-25] MEDS ORDERED: LEVO500T2 PO (17:12)
[2020-03-25] MEDS ORDERED: BENZ-16 MT (17:12)
[2020-03-25] MEDS ORDERED: CHOL3000 PO (17:12)
[2020-03-25] MEDS ORDERED: LATA2.5D2 EACHEYE (17:12)
[2020-03-25] MEDS ORDERED: FAMO-135 PO (17:12)
[2020-03-25] MEDS ORDERED: APIX5TAB MT (17:12)
[2020-03-25] MEDS ORDERED: LOSA25TA3 MT (17:12)
[2020-03-25] MEDS ORDERED: ASCO500C18 MT (17:12)
[2020-03-25] MEDS ORDERED: DILT60TA35 PO (17:12)
[2020-03-25] MEDS: ATORVASTATIN CALCIUM 40MG TABLET PO SCH (23:14)
[2020-03-25] MEDS: LETROZOLE 2.5MG TABLET PO SCH (23:14)
[2020-03-26] VITALS: BP 130/60
[2020-03-26] MEDS: ALBUTEROL 6.7GM HFA INHALER ORI SCH ×4 (02:00→20:29)
[2020-03-26 04:00] VITALS: BP 147/66
[2020-03-26] MEDS: DILTIAZEM HCL 60MG TABLET PO SCH ×3 (07:01→18:15)
[2020-03-26] MEDS: BLOOD SUGAR DIAGNOSTIC STRIP TEST SCH ×4 (07:02→21:00)
[2020-03-26] MEDS: INSULIN LISPRO 100 UNITS/ML SUBCUT SCH ×4 (07:35→21:00)
[2020-03-26 08:00] VITALS: BP 142/66
[2020-03-26] MEDS: FAMOTIDINE 20MG/2ML VIAL IV SCH (08:59)
[2020-03-26] MEDS: ZINC SULFATE 220 MG ( 50 ) CAPSULE PO SCH (09:00)
[2020-03-26] MEDS: ASCORBIC ACID 500 MG TABLET PO SCH ×2 (09:00→21:00)
[2020-03-26] MEDS: ASPIRIN 81MG EC TABLET PO SCH (09:00)
[2020-03-26] MEDS: ENOXAPARIN 40MG/0.4ML SYR SUBCUT SCH ×2 (09:00→21:00)
[2020-03-26] MEDS ORDERED: LOSARTAN POTASSIUM 25 MG TABLET PO SCH (09:00)
[2020-03-26] MEDS: DEXAMETHASONE 10 MG/ML VIAL IV SCH (09:00)
[2020-03-26] MEDS: INSULIN GLARGINE UD 100 UNITS/ML SYR SUBCUT SCH ×2 (10:37→21:59)
[2020-03-26 12:00] VITALS: BP 139/69
[2020-03-26 16:00] VITALS: BP 138/55
[2020-03-26 20:00] VITALS: BP 138/60
[2020-03-26] MEDS: LETROZOLE 2.5MG TABLET PO SCH (21:00)
[2020-03-26] MEDS: ATORVASTATIN CALCIUM 40MG TABLET PO SCH (21:00)
== END 2020-03-26 22:30 | disposition home health service (06) | DRG 177 ==
LOC: ER 09:34 → 8WST 13:13 → ENRESERV 23:30 → 8WST 03-21 03:18
PROVIDERS: ADMIT Internal Medicine; ATTEND Internal Medicine
DX: U07.1 COVID-19 (principal); I50.33 Acute on chronic diastolic (congestive) heart failure; J12.82 Pneumonia due to coronavirus disease 2019; J15.9 Unspecified bacterial pneumonia; J96.21 Acute and chronic respiratory failure with hypoxia; J44.1 Chronic obstructive pulmonary disease with (acute) exacerbation; E46 Unspecified protein-calorie malnutrition; J44.0 Chronic obstructive pulmonary disease with (acute) lower respiratory infection; D68.69 Other thrombophilia; Z68.42 Body mass index [BMI] 45.0-49.9, adult; I11.0 Hypertensive heart disease with heart failure; E11.40 Type 2 diabetes mellitus with diabetic neuropathy, unspecified; E66.01 Morbid (severe) obesity due to excess calories; E78.00 Pure hypercholesterolemia, unspecified; E78.5 Hyperlipidemia, unspecified; E83.42 Hypomagnesemia; I48.0 Paroxysmal atrial fibrillation; N28.9 Disorder of kidney and ureter, unspecified; R77.8 Other specified abnormalities of plasma proteins; Z96.652 Presence of left artificial knee joint; Z91.040 Latex allergy status; Z79.2 Long term (current) use of antibiotics; Z79.811 Long term (current) use of aromatase inhibitors; Z99.81 Dependence on supplemental oxygen; Z79.01 Long term (current) use of anticoagulants; Z79.899 Other long term (current) drug therapy; Z85.3 Personal history of malignant neoplasm of breast; Z79.82 Long term (current) use of aspirin
CPT/HCPCS: 36415; 36600; 71045; 80048; 80053; 80061; 81003; 82375; 82550; 82728; 82805; 82962; 83036; 83735; 83880; 84145; 84443; 84484; 85025; 85027; 85379; 86141; 86300; 86850; 86900; 87635; 93005; 93970; 99285; C1893; J0282; J1100; J1650; J1815; J1940; J1956; J2920; J2930; J3420; J3475; J3490; J7060; J7512

== ENCOUNTER → 2020-06-04 | Outpatient (CLI) | payer MEDICARE, MEDICAID ==
[~2020-06-04] MED LIST changes: -AMLO10TA80 PO; +APIX5TAB MT; +ASCO500C18 MT; -ASPI-1497 PO; +BENZ-16 MT; +CHOL3000 PO; +DEXA4TAB MT; +DILT60TA35 PO; -HYDR-4135 MT; +LATA2.5D14 EACHEYE; +LOSA25TA3 MT; -P20 PO; -SPIR25TA6 MT; +ZINC220T4 MT; -ZOLP10TA6 PO
== END | disposition home or self-care (01) ==
LOC: MRI 13:15
DX: M47.816 Spondylosis without myelopathy or radiculopathy, lumbar region (principal); M54.5 Low back pain; M48.061 Spinal stenosis, lumbar region without neurogenic claudication
CPT/HCPCS: 72148

== ENCOUNTER → 2020-07-04 | Outpatient (CLI) | payer MEDICARE, MEDICAID ==
[~2020-07-04] MED LIST changes: +BARIUM SULFATE 450ML ORAL SUSP ONE; +IOHEXOL-300 100 ML BOTTLE ONE
== END | disposition home or self-care (01) ==
LOC: CT 07:08
PROVIDERS: ATTEND Internal Medicine
DX: N32.89 Other specified disorders of bladder (principal); I51.7 Cardiomegaly; I31.3 Pericardial effusion (noninflammatory); E11.9 Type 2 diabetes mellitus without complications
CPT/HCPCS: 74177; Q9967

== ENCOUNTER 2021-01-18 19:09 | Inpatient (IN) | payer MEDICARE, MEDICAID ==
[~2021-01-18] VITALS: Ht 162.6 cm; Wt 123.1 kg
[~2021-01-18 19:09] MED LIST changes: +ASPI-1497 PO; -BARIUM SULFATE 450ML ORAL SUSP ONE; +FURO-151 MT; +FURO80TA87 PO; -IOHEXOL-300 100 ML BOTTLE ONE; +SITA100T11 PO; +ZOLP10TA2 MT
[2021-01-18] MEDS ORDERED: FUROSEMIDE 40MG/4ML VIAL IV ONE (22:00)
[2021-01-18] MEDS ORDERED: KETOROLAC 30MG/ML VIAL IV ONE (22:00)
[2021-01-18 23:14] LABS: CHLORIDE 106 mEq/L (98-107)
[2021-01-18 23:16] LABS: HEMATOCRIT. 33.5 % (36.0-48.0); HEMOGLOBIN. 10.4 g/dL (12.0-16.0); MEAN CORPUSCULAR HEMOGLOBIN 26.4 pg (28.0-32.0); MEAN CORPUSCULAR VOLUME 84.5 fL (81.0-99.0); MEAN PLATELET VOLUME 8.4 fl (7.4-10.4); PLATELET 244 x1000/uL (130-400); RED BLOOD CELL COUNT 3.96 mill/uL (4.2-5.4)
[2021-01-18 23:35] LABS: INR 1.5; PROTHROMBIN TIME 15.6 sec (9.6-11.0)
[2021-01-19 04:36] LABS: PLATELET ESTIMATE NORMAL
[2021-01-19 12:00] VITALS: BP 151/81
[2021-01-19] MEDS: SPIRONOLACTONE 25MG TABLET PO SCH (13:00)
[2021-01-19] MEDS: ENOXAPARIN 100MG/ML SYR SUBCUT SCH ×2 (13:00→22:44)
[2021-01-19] MEDS: DILTIAZEM HCL 60MG TABLET PO SCH ×2 (13:00→22:43)
[2021-01-19 14:25] VITALS: BP 151/81
[2021-01-19] MEDS ORDERED: NALOXONE HCL 0.4MG/ML VIAL IV PRN (15:00)
[2021-01-19 16:00] VITALS: BP 144/80
[2021-01-19] MEDS: FUROSEMIDE 40MG/4ML VIAL IVP SCH (16:41)
[2021-01-19] MEDS: HYDROCODONE/ACETAMINOPHEN 10/325MG TABLET PO PRN ×2 (16:42→22:49)
[2021-01-19 20:00] VITALS: BP 150/73
[2021-01-19] MEDS: ATORVASTATIN CALCIUM 40MG TABLET PO SCH (22:43)
[2021-01-20] VITALS: BP 138/70
[2021-01-20 04:00] VITALS: BP 143/70
[2021-01-20] MEDS: DILTIAZEM HCL 60MG TABLET PO SCH ×3 (05:24→21:32)
[2021-01-20] MEDS: HYDROCODONE/ACETAMINOPHEN 10/325MG TABLET PO PRN ×3 (05:25→20:56)
[2021-01-20 08:00] VITALS: BP 176/84
[2021-01-20] MEDS ORDERED: FUROSEMIDE 40MG/4ML VIAL IVP SCH (09:00)
[2021-01-20 09:34] LABS: BASOPHILS % 0.9 % (0.0-2.0); EOSINOPHILS % 1.5 % (0.0-5.0); HEMATOCRIT. 32.1 % (36.0-48.0); HEMOGLOBIN. 10.2 g/dL (12.0-16.0); LYMPHOCYTES % 14.5 % (20.0-50.0); MEAN CORPUSCULAR HEMOGLOBIN 26.9 pg (28.0-32.0); MEAN CORPUSCULAR VOLUME 84.4 fL (81.0-99.0); MEAN PLATELET VOLUME 9.3 fl (7.4-10.4); MONOCYTES % 7.7 % (2.0-8.0); NEUTROPHILS % 75.4 % (40.0-76.0); PLATELET 226 x1000/uL (130-400); RED CELL DISTRIBUTION WIDTH 15.8 % (11.6-14.6)
[2021-01-20] MEDS: ENOXAPARIN 100MG/ML SYR SUBCUT SCH ×2 (09:43→20:47)
[2021-01-20] MEDS: FUROSEMIDE 40MG/4ML VIAL IVP SCH ×2 (09:43→18:09)
[2021-01-20] MEDS: SPIRONOLACTONE 25MG TABLET PO SCH (09:44)
[2021-01-20 10:12] LABS: CHLORIDE 104 mEq/L (98-107)
[2021-01-20 12:00] VITALS: BP 129/68
[2021-01-20] MEDS: HYDRALAZINE HCL 50MG TABLET PO SCH ×2 (12:54→20:46)
[2021-01-20] MEDS ORDERED: IPRATROPIUM/ALBUTEROL 0.5-3(2.5)MG/3ML NEB HHN PRN (15:30)
[2021-01-20] MEDS ORDERED: LACTULOSE 20G/30ML UDC PO PRN (15:30)
[2021-01-20] MEDS ORDERED: ONDANSETRON HCL 4MG/2ML INJ IV PRN (15:30)
[2021-01-20] MEDS ORDERED: HYDRALAZINE 20MG/ML VIAL IV PRN (15:30)
[2021-01-20 16:00] VITALS: BP 152/79
[2021-01-20] MEDS ORDERED: POTASSIUM CHLORIDE 20MEQ/PACKET PO NR (16:00)
[2021-01-20] MEDS ORDERED: METOLAZONE 2.5MG TABLET PO NR (16:00)
[2021-01-20 17:53] LABS: CREATINE KINASE MB FRACTION 1.1 ng/mL (0.5-3.6)
[2021-01-20] MEDS: METHYLPREDNISOLONE SOD SUCC 40 MG/ML VIAL IV SCH (18:07)
[2021-01-20 20:00] VITALS: BP 128/63
[2021-01-20] MEDS: ATORVASTATIN CALCIUM 40MG TABLET PO SCH (20:46)
[2021-01-20] MEDS ORDERED: DEXTROSE 50% WATER 50ML SYRINGE IV PRN (21:15)
[2021-01-20] MEDS: INSULIN LISPRO 100 UNITS/ML SUBCUT SCH (21:30)
[2021-01-20] MEDS: BLOOD SUGAR DIAGNOSTIC STRIP TEST SCH (21:32)
[2021-01-20] MEDS: IPRATROPIUM/ALBUTEROL 0.5-3(2.5)MG/3ML NEB HHN SCH (21:52)
[2021-01-20] MEDS ORDERED: SILDENAFIL CITRATE 20MG TABLET PO SCH (22:00)
[2021-01-20] MEDS: LATANOPROST 0.005% OPHTH DROPS 2.5ML EACHEYE SCH (23:20)
[2021-01-21] VITALS: BP 130/54
[2021-01-21] MEDS: IPRATROPIUM/ALBUTEROL 0.5-3(2.5)MG/3ML NEB HHN SCH ×3 (02:49→21:35)
[2021-01-21 04:00] VITALS: BP 122/60
[2021-01-21] MEDS: DILTIAZEM HCL 60MG TABLET PO SCH ×3 (05:37→20:39)
[2021-01-21] MEDS: INSULIN LISPRO 100 UNITS/ML SUBCUT SCH ×4 (06:15→20:42)
[2021-01-21] MEDS: BLOOD SUGAR DIAGNOSTIC STRIP TEST SCH ×4 (06:16→20:39)
[2021-01-21] MEDS: HYDROCODONE/ACETAMINOPHEN 10/325MG TABLET PO PRN ×4 (06:22→22:44)
[2021-01-21 08:00] VITALS: BP 129/67
[2021-01-21] MEDS: FUROSEMIDE 40MG/4ML VIAL IVP SCH ×2 (09:35→17:46)
[2021-01-21] MEDS: METHYLPREDNISOLONE SOD SUCC 40 MG/ML VIAL IV SCH (09:35)
[2021-01-21] MEDS: SPIRONOLACTONE 25MG TABLET PO SCH (09:35)
[2021-01-21] MEDS: HYDRALAZINE HCL 50MG TABLET PO SCH ×2 (09:36→20:38)
[2021-01-21] MEDS: ENOXAPARIN 100MG/ML SYR SUBCUT SCH ×2 (09:37→20:43)
[2021-01-21 11:14] LABS: HEMATOCRIT. 33.5 % (36.0-48.0); HEMOGLOBIN. 10.4 g/dL (12.0-16.0); MEAN CORPUSCULAR HEMOGLOBIN 26.5 pg (28.0-32.0); MEAN CORPUSCULAR VOLUME 85.4 fL (81.0-99.0); MEAN PLATELET VOLUME 9.5 fl (7.4-10.4); PLATELET 258 x1000/uL (130-400); RED BLOOD CELL COUNT 3.92 mill/uL (4.2-5.4)
[2021-01-21 11:25] LABS: CHLORIDE 101 mEq/L (98-107)
[2021-01-21 12:00] VITALS: BP 140/63
[2021-01-21] MEDS ORDERED: METOLAZONE 2.5MG TABLET PO SCH (14:30)
[2021-01-21 16:00] VITALS: BP 118/78
[2021-01-21 18:03] LABS: PLATELET ESTIMATE NORMAL
[2021-01-21 20:00] VITALS: BP 132/60
[2021-01-21] MEDS: ATORVASTATIN CALCIUM 40MG TABLET PO SCH (20:39)
[2021-01-21] MEDS: LATANOPROST 0.005% OPHTH DROPS 2.5ML EACHEYE SCH (20:39)
[2021-01-22] VITALS (7 sets, daily range): BP systolic 121–134; BP diastolic 57–76
[2021-01-22] MEDS: IPRATROPIUM/ALBUTEROL 0.5-3(2.5)MG/3ML NEB HHN SCH ×3 (02:20→15:29)
[2021-01-22] MEDS: HYDROCODONE/ACETAMINOPHEN 10/325MG TABLET PO PRN ×4 (02:20→17:46)
[2021-01-22] MEDS: DILTIAZEM HCL 60MG TABLET PO SCH ×2 (05:58→14:28)
[2021-01-22] MEDS: BLOOD SUGAR DIAGNOSTIC STRIP TEST SCH ×4 (05:59→20:52)
[2021-01-22] MEDS: FUROSEMIDE 40MG/4ML VIAL IVP SCH ×2 (05:59→17:31)
[2021-01-22] MEDS: INSULIN LISPRO 100 UNITS/ML SUBCUT SCH ×4 (06:03→20:52)
[2021-01-22 08:40] LABS: HEMATOCRIT. 32.5 % (36.0-48.0); HEMOGLOBIN. 10.2 g/dL (12.0-16.0); MEAN CORPUSCULAR HEMOGLOBIN 26.6 pg (28.0-32.0); MEAN CORPUSCULAR VOLUME 84.4 fL (81.0-99.0); MEAN PLATELET VOLUME 9.7 fl (7.4-10.4); PLATELET 265 x1000/uL (130-400); RED BLOOD CELL COUNT 3.85 mill/uL (4.2-5.4)
[2021-01-22 08:53] LABS: CHLORIDE 97 mEq/L (98-107)
[2021-01-22] MEDS: METHYLPREDNISOLONE SOD SUCC 40 MG/ML VIAL IV SCH (09:03)
[2021-01-22] MEDS: HYDRALAZINE HCL 50MG TABLET PO SCH (09:04)
[2021-01-22] MEDS: ENOXAPARIN 100MG/ML SYR SUBCUT SCH (09:04)
[2021-01-22] MEDS: SPIRONOLACTONE 25MG TABLET PO SCH (09:06)
[2021-01-22] MEDS ORDERED: LACTULOSE 20G/30ML UDC PO NR (13:00)
[2021-01-22] MEDS ORDERED: IPRA3AMP9 NEB (14:45)
[2021-01-22] MEDS ORDERED: FURO-152 MT (14:45)
[2021-01-22] MEDS ORDERED: FURO-151 MT (14:45)
[2021-01-22] MEDS ORDERED: SPIR25TA6 PO (14:45)
[2021-01-22] MEDS ORDERED: BISACODYL 10MG SUPP PR NR (16:00)
[2021-01-22] MEDS ORDERED: BISA-81 MT (16:03)
[2021-01-22 16:18] LABS: PLATELET ESTIMATE NORMAL
[2021-01-22] MEDS: LATANOPROST 0.005% OPHTH DROPS 2.5ML EACHEYE SCH (20:51)
== END 2021-01-22 20:41 | disposition home or self-care (01) | DRG 291 ==
LOC: ER 19:09 → MICUSO 22:33 → EDBEDREQ 22:38 → 8WST 01-19 12:00
PROVIDERS: ADMIT Internal Medicine; ATTEND Internal Medicine
DX: I11.0 Hypertensive heart disease with heart failure (principal); I50.33 Acute on chronic diastolic (congestive) heart failure; J44.1 Chronic obstructive pulmonary disease with (acute) exacerbation; D68.59 Other primary thrombophilia; I48.92 Unspecified atrial flutter; Z68.42 Body mass index [BMI] 45.0-49.9, adult; I48.0 Paroxysmal atrial fibrillation; E78.5 Hyperlipidemia, unspecified; D64.9 Anemia, unspecified; I27.20 Pulmonary hypertension, unspecified; M19.90 Unspecified osteoarthritis, unspecified site; E11.65 Type 2 diabetes mellitus with hyperglycemia; E66.01 Morbid (severe) obesity due to excess calories; Z20.822 Contact with and (suspected) exposure to COVID-19; Z96.652 Presence of left artificial knee joint; I27.81 Cor pulmonale (chronic); Z86.16 Personal history of COVID-19; Z79.01 Long term (current) use of anticoagulants; Z79.811 Long term (current) use of aromatase inhibitors; Z79.82 Long term (current) use of aspirin; Z79.84 Long term (current) use of oral hypoglycemic drugs; Z79.899 Other long term (current) drug therapy; Z85.3 Personal history of malignant neoplasm of breast; Z91.040 Latex allergy status; Z91.048 Other nonmedicinal substance allergy status; R06.03 Acute respiratory distress
CPT/HCPCS: 36415; 71045; 80048; 80053; 82550; 82553; 82962; 83036; 83735; 83880; 84484; 85025; 87426; 93005; 93306; 94640; 97162; 99285; J1650; J1815; J1885; J1940; J2920; J7040

== ENCOUNTER 2021-07-05 11:11 | Inpatient (IN) | payer MEDICARE, MEDICAID ==
[~2021-07-05] VITALS: Ht 162.6 cm; Wt 126.2 kg
[~2021-07-05 11:11] MED LIST changes: +BISA-81 MT; -DEXA4TAB MT; +FURO-152 MT; -FURO80TA87 PO; -LEVO500T2 PO; -LOSA25TA3 MT; -MORP30TA66 PO; -TELM80TA8 PO
[2021-07-05 13:11] LABS: BASOPHILS % 0.2 % (0.0-2.0); EOSINOPHILS % 0.7 % (0.0-5.0); HEMATOCRIT. 38.3 % (36.0-48.0); HEMOGLOBIN. 11.8 g/dL (12.0-16.0); LYMPHOCYTES % 7.4 % (20.0-50.0); MEAN CORPUSCULAR HEMOGLOBIN 24.9 pg (28.0-32.0); MEAN CORPUSCULAR VOLUME 80.5 fL (81.0-99.0); MEAN PLATELET VOLUME 8.7 fl (7.4-10.4); NEUTROPHILS % 82.7 % (40.0-76.0); PLATELET 286 x1000/uL (130-400); RED BLOOD CELL COUNT 4.76 mill/uL (4.2-5.4); RED CELL DISTRIBUTION WIDTH 16.6 % (11.6-14.6)
[2021-07-05 13:20] LABS: CHLORIDE 105 mEq/L (98-107)
[2021-07-05] MEDS ORDERED: KETOROLAC 30MG/ML VIAL IV ONE (13:45)
[2021-07-05] MEDS ORDERED: DOCUSATE SODIUM 100MG CAPSULE PO PRN (14:00)
[2021-07-05] MEDS ORDERED: NA PHOS,M-B/NA PHOS,DI-BA ENEMA 118ML PR PRN (14:00)
[2021-07-05] MEDS ORDERED: DEXTROSE 50% WATER 50ML SYRINGE IV PRN (14:00)
[2021-07-05] MEDS ORDERED: DIPHENHYDRAMINE 50MG/ML VIAL IV PRN (14:00)
[2021-07-05] MEDS ORDERED: ACETAMINOPHEN 325MG TABLET PO PRN (14:00)
[2021-07-05] MEDS ORDERED: ACETAMINOPHEN 650MG SUPP PR PRN (14:00)
[2021-07-05] MEDS ORDERED: CLONIDINE 0.1MG TABLET PO PRN (14:00)
[2021-07-05] MEDS ORDERED: SODIUM BICARBONATE 8.4% 1 MEQ/ML 50ML SYR IV NR (14:50)
[2021-07-05] MEDS ORDERED: INSULIN REGULAR (HUMULIN R) 300UNITS/3ML VIAL IV NR (14:51)
[2021-07-05] MEDS ORDERED: DEXTROSE 50% WATER 50ML SYRINGE IV NR (14:52)
[2021-07-05] MEDS ORDERED: SODIUM POLYSTYRENE SULFONATE 15 G/60 ML BOT PO NR (15:00)
[2021-07-05] MEDS ORDERED: CEFTRIAXONE 1 G PREMIX 50 ML IV SCH (15:00)
[2021-07-05] MEDS ORDERED: CALCIUM GLUCONATE 1GM PREMIX 50 ML IV NR (15:00)
[2021-07-05] MEDS ORDERED: NALOXONE HCL 0.4MG/ML VIAL IV PRN (15:30)
[2021-07-05 15:42] LABS: INR 1.4; PROTHROMBIN TIME 14.4 sec (9.6-11.0)
[2021-07-05 15:47] LABS: CREATINE KINASE MB FRACTION 1.7 ng/mL (0.5-3.6)
[2021-07-05] MEDS ORDERED: GUAIFENESIN 200MG/10ML SUGAR FREE UDC PO PRN (16:00)
[2021-07-05] MEDS ORDERED: MAGNESIUM/ALUMINUM HYDROXIDE/SIMETHICONE 30ML UDC PO PRN (16:00)
[2021-07-05] MEDS ORDERED: LORAZEPAM 0.5MG TABLET PO PRN (16:00)
[2021-07-05] MEDS ORDERED: IPRATROPIUM/ALBUTEROL 0.5-3(2.5)MG/3ML NEB NEB PRN (16:00)
[2021-07-05] MEDS ORDERED: ONDANSETRON HCL 4MG/2ML INJ IV PRN (16:00)
[2021-07-05] MEDS ORDERED: AZITHROMYCIN 500 MG in DEXT 5% WATER 250 ML IV SCH (16:00)
[2021-07-05] MEDS: METHYLPREDNISOLONE SOD SUCC 40 MG/ML VIAL IV SCH (16:29)
[2021-07-05] MEDS: BLOOD SUGAR DIAGNOSTIC STRIP TEST SCH ×2 (17:00→21:36)
[2021-07-05] MEDS: CEFTRIAXONE 1,000 MG in DEXTROSE 5% WATER 50 ML IV SCH (17:00)
[2021-07-05] MEDS: FUROSEMIDE 40MG TABLET PO SCH ×2 (17:45→19:00)
[2021-07-05] MEDS: INSULIN LISPRO 100 UNITS/ML SUBCUT SCH ×2 (17:51→21:45)
[2021-07-05 18:00] VITALS: BP 148/63
[2021-07-05 18:34] VITALS: BP 148/63
[2021-07-05] MEDS: AMLODIPINE 5MG TABLET PO SCH (18:58)
[2021-07-05] MEDS: HYDROCODONE/APAP 7.5/325MG 1 TAB TABLET PO PRN (18:59)
[2021-07-05] MEDS: FAMOTIDINE 20MG/2ML VIAL IV SCH (18:59)
[2021-07-05] MEDS: ENOXAPARIN 30MG/0.3ML SYR SUBCUT SCH (19:00)
[2021-07-05] MEDS: GABAPENTIN 100MG CAPSULE PO SCH (21:36)
[2021-07-05 23:58] LABS: CREATINE KINASE MB FRACTION 2.1 ng/mL (0.5-3.6)
[2021-07-06] VITALS (9 sets, daily range): BP systolic 126–171; BP diastolic 53–92
[2021-07-06] MEDS: METHYLPREDNISOLONE SOD SUCC 40 MG/ML VIAL IV SCH ×2 (04:36→17:19)
[2021-07-06] MEDS: GABAPENTIN 100MG CAPSULE PO SCH ×3 (05:01→23:04)
[2021-07-06] MEDS: ENOXAPARIN 30MG/0.3ML SYR SUBCUT SCH (05:01)
[2021-07-06] MEDS: BLOOD SUGAR DIAGNOSTIC STRIP TEST SCH ×4 (06:32→20:09)
[2021-07-06 07:27] LABS: HEMATOCRIT. 35.8 % (36.0-48.0); HEMOGLOBIN. 11.2 g/dL (12.0-16.0); MEAN CORPUSCULAR HEMOGLOBIN 25.6 pg (28.0-32.0); MEAN CORPUSCULAR VOLUME 81.4 fL (81.0-99.0); MEAN PLATELET VOLUME 9.1 fl (7.4-10.4); PLATELET 309 x1000/uL (130-400); RED BLOOD CELL COUNT 4.39 mill/uL (4.2-5.4); RED CELL DISTRIBUTION WIDTH 16.4 % (11.6-14.6)
[2021-07-06 08:02] LABS: CHLORIDE 104 mEq/L (98-107)
[2021-07-06] MEDS: AMLODIPINE 5MG TABLET PO SCH (09:13)
[2021-07-06] MEDS: FUROSEMIDE 40MG TABLET PO SCH (09:13)
[2021-07-06] MEDS: ASPIRIN 81MG EC TABLET PO SCH (09:13)
[2021-07-06] MEDS: FAMOTIDINE 20MG/2ML VIAL IV SCH (09:14)
[2021-07-06] MEDS: INSULIN LISPRO 100 UNITS/ML SUBCUT SCH ×4 (09:14→20:11)
[2021-07-06] MEDS ORDERED: ENOXAPARIN 100MG/ML SYR SUBCUT NR (12:15)
[2021-07-06] MEDS: AZITHROMYCIN 500 MG in DEXT 5% WATER 250 ML IV SCH (14:00)
[2021-07-06 16:03] LABS: CLARITY URINE CLEAR (CLEAR); COLOR URINE YELLOW (YELLOW); KETONES URINE NEGATIVE (NEGATIVE); LEUKOCYTE ESTERASE URINE NEGATIVE (NEGATIVE); NITRITE URINE NEGATIVE (NEGATIVE); OCCULT BLOOD URINE NEGATIVE (NEGATIVE); PROTEIN URINE NEGATIVE (NEGATIVE); SPECIFIC GRAVITY URINE 1.024 (1.005-1.030); UROBILINOGEN URINE 0.2 E.U./dL (0.2-1.0)
[2021-07-06 16:33] LABS: PLATELET ESTIMATE NORMAL
[2021-07-06 16:54] LABS: *AMPHETAMINES SCREEN URINE NEGATIVE (NEGATIVE); *BARBITURATES SCREEN URINE NEGATIVE (NEGATIVE); *BENZODIAZEPINES SCREEN URINE NEGATIVE (NEGATIVE); *COCAINE SCREEN URINE NEGATIVE (NEGATIVE); METHADONE URINE SCREEN NEGATIVE (NEGATIVE)
[2021-07-06 16:55] LABS: CANNABINOID URINE SCREEN NEGATIVE (NEGATIVE); OPIATES URINE SCREEN PRESUMTIVE POSITIVE (NEGATIVE); PHENCYCLIDINE URINE SCREEN NEGATIVE (NEGATIVE)
[2021-07-06] MEDS: FUROSEMIDE 40MG/4ML VIAL IVP SCH (17:42)
[2021-07-06] MEDS: DILTIAZEM HCL 30MG TABLET PO SCH ×2 (18:46→23:41)
[2021-07-06] MEDS: CEFTRIAXONE 1,000 MG in DEXTROSE 5% WATER 50 ML IV SCH (19:48)
[2021-07-06] MEDS: HYDROCODONE/APAP 7.5/325MG 1 TAB TABLET PO PRN (19:50)
[2021-07-06] MEDS: ENOXAPARIN 120MG/0.8ML SYR SUBCUT SCH (20:10)
[2021-07-07] VITALS: BP 128/55
[2021-07-07] MEDS: IPRATROPIUM/ALBUTEROL 0.5-3(2.5)MG/3ML NEB NEB SCH ×4 (02:20→20:35)
[2021-07-07 04:00] VITALS: BP 135/80
[2021-07-07] MEDS: METHYLPREDNISOLONE SOD SUCC 40 MG/ML VIAL IV SCH (04:41)
[2021-07-07] MEDS: HYDROCODONE/APAP 7.5/325MG 1 TAB TABLET PO PRN ×2 (05:00→12:03)
[2021-07-07] MEDS: DILTIAZEM HCL 30MG TABLET PO SCH (06:00)
[2021-07-07] MEDS: BLOOD SUGAR DIAGNOSTIC STRIP TEST SCH ×5 (06:26→21:00)
[2021-07-07] MEDS: FUROSEMIDE 40MG/4ML VIAL IVP SCH ×2 (06:27→18:44)
[2021-07-07] MEDS: GABAPENTIN 100MG CAPSULE PO SCH ×2 (06:27→15:25)
[2021-07-07] MEDS: INSULIN LISPRO 100 UNITS/ML SUBCUT SCH ×3 (07:17→23:16)
[2021-07-07 08:00] VITALS: BP 157/91
[2021-07-07 08:43] LABS: HEMATOCRIT. 35.7 % (36.0-48.0); MEAN CORPUSCULAR HEMOGLOBIN 24.6 pg (28.0-32.0); MEAN CORPUSCULAR VOLUME 79.7 fL (81.0-99.0); MEAN PLATELET VOLUME 8.8 fl (7.4-10.4); PLATELET 314 x1000/uL (130-400); RED BLOOD CELL COUNT 4.48 mill/uL (4.2-5.4); RED CELL DISTRIBUTION WIDTH 16.3 % (11.6-14.6)
[2021-07-07] MEDS: ASPIRIN 81MG EC TABLET PO SCH (09:20)
[2021-07-07] MEDS: FAMOTIDINE 20MG/2ML VIAL IV SCH (09:20)
[2021-07-07] MEDS: ENOXAPARIN 120MG/0.8ML SYR SUBCUT SCH ×2 (09:21→21:00)
[2021-07-07] MEDS ORDERED: LIDOCAINE HCL 1% 20ML VIAL (Pyxis) INJ ONE (09:34)
[2021-07-07 12:00] VITALS: BP 140/61
[2021-07-07] MEDS: AZITHROMYCIN 500 MG in DEXT 5% WATER 250 ML IV SCH (15:25)
[2021-07-07 16:31] VITALS: BP 117/56
[2021-07-07 18:14] LABS: PLATELET ESTIMATE NORMAL
[2021-07-07] MEDS: CEFTRIAXONE 1,000 MG in DEXTROSE 5% WATER 50 ML IV SCH (18:45)
[2021-07-07] MEDS ORDERED: INSULIN LISPRO 100 UNITS/ML SUBCUT NR (18:58)
[2021-07-07] MEDS ORDERED: INSULIN GLARGINE 100 UNITS/ML SUBCUT NR (20:00)
[2021-07-07 21:00] VITALS: BP 118/54
[2021-07-08 00:30] VITALS: BP 139/70
[2021-07-08] MEDS: GABAPENTIN 100MG CAPSULE PO SCH ×4 (00:53→22:29)
[2021-07-08] MEDS: HYDROCODONE/APAP 7.5/325MG 1 TAB TABLET PO PRN ×4 (02:23→22:35)
[2021-07-08 04:00] VITALS: BP 150/65
[2021-07-08] MEDS: FUROSEMIDE 40MG/4ML VIAL IVP SCH (06:52)
[2021-07-08] MEDS: DEXAMETHASONE 4MG/ML 1ML VIAL IV SCH ×2 (06:53→12:00)
[2021-07-08] MEDS: BLOOD SUGAR DIAGNOSTIC STRIP TEST SCH ×4 (07:40→21:34)
[2021-07-08 07:52] LABS: HEMATOCRIT. 36.2 % (36.0-48.0); MEAN CORPUSCULAR HEMOGLOBIN 24.5 pg (28.0-32.0); MEAN PLATELET VOLUME 8.5 fl (7.4-10.4); PLATELET 319 x1000/uL (130-400); RED BLOOD CELL COUNT 4.47 mill/uL (4.2-5.4); RED CELL DISTRIBUTION WIDTH 16.3 % (11.6-14.6)
[2021-07-08 08:00] VITALS: BP 163/81
[2021-07-08] MEDS: FAMOTIDINE 20MG/2ML VIAL IV SCH (08:30)
[2021-07-08] MEDS: AMLODIPINE 5MG TABLET PO SCH (08:31)
[2021-07-08] MEDS: INSULIN LISPRO 100 UNITS/ML SUBCUT SCH ×4 (08:33→22:30)
[2021-07-08] MEDS: ASPIRIN 81MG EC TABLET PO SCH (08:34)
[2021-07-08] MEDS: ENOXAPARIN 120MG/0.8ML SYR SUBCUT SCH ×2 (08:35→22:28)
[2021-07-08] MEDS: IPRATROPIUM/ALBUTEROL 0.5-3(2.5)MG/3ML NEB NEB SCH ×2 (08:44→13:25)
[2021-07-08] MEDS ORDERED: AZITHROMYCIN 500 MG TABLET PO SCH (09:00)
[2021-07-08] MEDS ORDERED: LOSARTAN POTASSIUM 50 MG TABLET PO SCH (09:30)
[2021-07-08] MEDS ORDERED: INSULIN GLARGINE 100 UNITS/ML SUBCUT SCH (10:00)
[2021-07-08 12:00] VITALS: BP 128/80
[2021-07-08 14:10] LABS: PLATELET ESTIMATE NORMAL
[2021-07-08 16:00] VITALS: BP 139/76
[2021-07-08] MEDS ORDERED: DEXAMETHASONE 4MG/ML 1ML VIAL IV SCH (18:00)
[2021-07-08] MEDS: CEFTRIAXONE 1,000 MG in DEXTROSE 5% WATER 50 ML IV SCH (18:15)
[2021-07-08] MEDS ORDERED: FAMOTIDINE 20MG TABLET PO SCH (21:00)
[2021-07-08 22:35] VITALS: BP 153/71
[2021-07-09] MEDS ORDERED: SPIRONOLACTONE 25MG TABLET PO SCH (09:00)
[2021-07-09] MEDS ORDERED: FUROSEMIDE 40MG TABLET PO SCH (09:00)
== END 2021-07-08 23:00 | DRG 551 ==
LOC: ER 11:57 → 3WST 14:30 → ENRESERV 15:09 → 7WST 07-07 17:32
PROVIDERS: ADMIT Internal Medicine; ATTEND Internal Medicine
PROC: 02HV33Z Insertion of Infusion Device into Superior Vena Cava, Percutaneous Approach (ICD-10-PCS; principal; 2021-07-07)
PROC: B548ZZA Ultrasonography of Superior Vena Cava, Guidance (ICD-10-PCS; 2021-07-07)
PROC: B518ZZA Fluoroscopy of Superior Vena Cava, Guidance (ICD-10-PCS; 2021-07-07)
DX: M47.816 Spondylosis without myelopathy or radiculopathy, lumbar region (principal); I50.33 Acute on chronic diastolic (congestive) heart failure; D68.59 Other primary thrombophilia; I48.92 Unspecified atrial flutter; J44.1 Chronic obstructive pulmonary disease with (acute) exacerbation; G82.20 Paraplegia, unspecified; Z68.42 Body mass index [BMI] 45.0-49.9, adult; I42.8 Other cardiomyopathies; E11.40 Type 2 diabetes mellitus with diabetic neuropathy, unspecified; I11.0 Hypertensive heart disease with heart failure; E66.01 Morbid (severe) obesity due to excess calories; D64.9 Anemia, unspecified; E78.00 Pure hypercholesterolemia, unspecified; E87.5 Hyperkalemia; I34.0 Nonrheumatic mitral (valve) insufficiency; B35.1 Tinea unguium; L60.3 Nail dystrophy; E11.65 Type 2 diabetes mellitus with hyperglycemia; E78.5 Hyperlipidemia, unspecified; Z96.652 Presence of left artificial knee joint; R26.89 Other abnormalities of gait and mobility; M25.78 Osteophyte, vertebrae; R79.89 Other specified abnormal findings of blood chemistry; I27.20 Pulmonary hypertension, unspecified; M47.812 Spondylosis without myelopathy or radiculopathy, cervical region; M47.817 Spondylosis without myelopathy or radiculopathy, lumbosacral region; M48.02 Spinal stenosis, cervical region; R32 Unspecified urinary incontinence; I48.0 Paroxysmal atrial fibrillation; Z20.822 Contact with and (suspected) exposure to COVID-19; M43.17 Spondylolisthesis, lumbosacral region; M51.27 Other intervertebral disc displacement, lumbosacral region; R00.1 Bradycardia, unspecified; M48.061 Spinal stenosis, lumbar region without neurogenic claudication; Z79.899 Other long term (current) drug therapy; Z85.3 Personal history of malignant neoplasm of breast; Z87.01 Personal history of pneumonia (recurrent); Z86.16 Personal history of COVID-19; Z99.3 Dependence on wheelchair; Z91.040 Latex allergy status; Z91.048 Other nonmedicinal substance allergy status
CPT/HCPCS: 36415; 36573; 71045; 72141; 72146; 72148; 80048; 80053; 80305; 81003; 82550; 82553; 82962; 83735; 83880; 84132; 84443; 84484; 85025; 87426; 93005; 93970; 94640; 94664; 97162; 97166; 97530; 99285; C1725; J0456; J0610; J0696; J1100; J1650; J1815; J1885; J1940; J2920; J3490; J7060

== ENCOUNTER 2021-07-08 23:05 | Inpatient (IN) | payer MEDICARE, MEDICAID ==
[~2021-07-08] VITALS: Ht 162.6 cm; Wt 126.2 kg
[2021-07-08 23:05] VITALS: BP 145/75
[2021-07-09] MEDS ORDERED: ONDANSETRON HCL 4MG/2ML INJ IV PRN (00:30)
[2021-07-09] MEDS ORDERED: DEXTROSE 50% WATER 50ML SYRINGE IV PRN (00:30)
[2021-07-09] MEDS ORDERED: NA PHOS,M-B/NA PHOS,DI-BA ENEMA 118ML PR PRN (00:30)
[2021-07-09] MEDS ORDERED: MAGNESIUM/ALUMINUM HYDROXIDE/SIMETHICONE 30ML UDC PO PRN (00:30)
[2021-07-09] MEDS ORDERED: CLONIDINE 0.1MG TABLET PO PRN (00:30)
[2021-07-09] MEDS ORDERED: ACETAMINOPHEN 325MG TABLET PO PRN (00:30)
[2021-07-09] MEDS ORDERED: DIPHENHYDRAMINE 50MG/ML VIAL IV PRN (00:30)
[2021-07-09] MEDS ORDERED: NALOXONE HCL 0.4 MG/ML 1ML VIAL IV PRN (00:30)
[2021-07-09] MEDS ORDERED: IPRATROPIUM/ALBUTEROL 0.5-3(2.5)MG/3ML NEB HHN PRN (00:30)
[2021-07-09] MEDS ORDERED: ACETAMINOPHEN 650MG SUPP PR PRN (02:00)
[2021-07-09] MEDS ORDERED: ENOXAPARIN 120MG/0.8ML SYR SUBCUT SCH (02:00)
[2021-07-09] MEDS ORDERED: LORAZEPAM 0.5MG TABLET PO PRN (02:00)
[2021-07-09 03:57] LABS: INR 1.1; PROTHROMBIN TIME 11.6 sec (9.6-11.0)
[2021-07-09] MEDS: CEFTRIAXONE 1,000 MG in DEXTROSE 5% WATER 50 ML IV SCH (04:51)
[2021-07-09] MEDS ORDERED: DEXAMETHASONE 4MG/ML 1ML VIAL IV SCH (06:00)
[2021-07-09] MEDS: BLOOD SUGAR DIAGNOSTIC STRIP TEST SCH ×4 (07:09→21:00)
[2021-07-09] MEDS: GABAPENTIN 100MG CAPSULE PO SCH ×4 (07:11→22:38)
[2021-07-09 08:00] VITALS: BP 147/81
[2021-07-09] MEDS: ENOXAPARIN 120MG/0.8ML SYR SUBCUT SCH ×3 (09:25→21:00)
[2021-07-09] MEDS: INSULIN LISPRO 100 UNITS/ML SUBCUT SCH ×4 (09:27→23:31)
[2021-07-09] MEDS: AZITHROMYCIN 500 MG TABLET PO SCH (09:28)
[2021-07-09] MEDS: FUROSEMIDE 40MG TABLET PO SCH (09:29)
[2021-07-09] MEDS: HYDROCODONE/APAP 7.5/325MG 1 TAB TABLET PO PRN ×3 (09:29→23:05)
[2021-07-09] MEDS: AMLODIPINE 5MG TABLET PO SCH (09:29)
[2021-07-09] MEDS: LOSARTAN POTASSIUM 50 MG TABLET PO SCH (09:30)
[2021-07-09] MEDS: DOCUSATE SODIUM 100MG CAPSULE PO PRN ×2 (09:30→17:30)
[2021-07-09] MEDS: SPIRONOLACTONE 25MG TABLET PO SCH (09:34)
[2021-07-09] MEDS: INSULIN GLARGINE 100 UNITS/ML SUBCUT SCH (10:49)
[2021-07-09 11:03] LABS: HEMATOCRIT. 35.8 % (36.0-48.0); HEMOGLOBIN. 10.9 g/dL (12.0-16.0); MEAN CORPUSCULAR HEMOGLOBIN 24.9 pg (28.0-32.0); MEAN CORPUSCULAR VOLUME 82.2 fL (81.0-99.0); MEAN PLATELET VOLUME 9.3 fl (7.4-10.4); PLATELET 296 x1000/uL (130-400); RED BLOOD CELL COUNT 4.36 mill/uL (4.2-5.4); RED CELL DISTRIBUTION WIDTH 16.7 % (11.6-14.6)
[2021-07-09 13:18] LABS: PLATELET ESTIMATE NORMAL
[2021-07-09] MEDS: IPRATROPIUM/ALBUTEROL 0.5-3(2.5)MG/3ML NEB HHN SCH ×2 (13:54→21:42)
[2021-07-09] MEDS: SENNOSIDES/DOCUSATE SOD 8.6/50MG TABLET PO PRN (18:55)
[2021-07-09 20:00] VITALS: BP 142/70
[2021-07-09] MEDS: FAMOTIDINE 20MG TABLET PO SCH ×2 (22:34→22:37)
[2021-07-09] MEDS: DEXAMETHASONE 4MG/ML 1ML VIAL IV SCH (22:37)
[2021-07-09 22:53] VITALS: BP 142/70
[2021-07-10] MEDS: IPRATROPIUM/ALBUTEROL 0.5-3(2.5)MG/3ML NEB HHN SCH ×4 (02:04→21:17)
[2021-07-10] MEDS: CEFTRIAXONE 1,000 MG in DEXTROSE 5% WATER 50 ML IV SCH (02:38)
[2021-07-10] MEDS: GABAPENTIN 100MG CAPSULE PO SCH ×3 (05:21→21:06)
[2021-07-10] MEDS: HYDROCODONE/APAP 7.5/325MG 1 TAB TABLET PO PRN ×4 (05:24→21:07)
[2021-07-10] MEDS: BLOOD SUGAR DIAGNOSTIC STRIP TEST SCH ×4 (05:29→21:06)
[2021-07-10] MEDS: INSULIN LISPRO 100 UNITS/ML SUBCUT SCH ×4 (06:30→21:50)
[2021-07-10 06:45] LABS: HEMATOCRIT. 36.4 % (36.0-48.0); HEMOGLOBIN. 11.5 g/dL (12.0-16.0); MEAN CORPUSCULAR HEMOGLOBIN 24.9 pg (28.0-32.0); MEAN CORPUSCULAR VOLUME 79.2 fL (81.0-99.0); PLATELET 291 x1000/uL (130-400); RED CELL DISTRIBUTION WIDTH 15.8 % (11.6-14.6)
[2021-07-10 06:46] LABS: CHLORIDE 103 mEq/L (98-107)
[2021-07-10 08:00] VITALS: BP 140/83
[2021-07-10] MEDS: ENOXAPARIN 120MG/0.8ML SYR SUBCUT SCH ×3 (09:00→21:00)
[2021-07-10] MEDS: SPIRONOLACTONE 25MG TABLET PO SCH (09:31)
[2021-07-10] MEDS: AZITHROMYCIN 500 MG TABLET PO SCH (09:31)
[2021-07-10] MEDS: LOSARTAN POTASSIUM 50 MG TABLET PO SCH (09:31)
[2021-07-10] MEDS: FUROSEMIDE 40MG TABLET PO SCH (09:32)
[2021-07-10] MEDS: AMLODIPINE 5MG TABLET PO SCH (09:32)
[2021-07-10] MEDS: DEXAMETHASONE 4MG/ML 1ML VIAL IV SCH (09:34)
[2021-07-10] MEDS: INSULIN GLARGINE 100 UNITS/ML SUBCUT SCH (10:43)
[2021-07-10 20:00] VITALS: BP 128/74
[2021-07-11] MEDS: CEFTRIAXONE 1,000 MG in DEXTROSE 5% WATER 50 ML IV SCH (03:00)
[2021-07-11] MEDS: GABAPENTIN 100MG CAPSULE PO SCH ×3 (06:13→21:18)
[2021-07-11] MEDS: BLOOD SUGAR DIAGNOSTIC STRIP TEST SCH ×4 (06:18→21:19)
[2021-07-11] MEDS: HYDROCODONE/APAP 7.5/325MG 1 TAB TABLET PO PRN ×3 (06:23→22:21)
[2021-07-11 06:35] LABS: BASOPHILS % 0.3 % (0.0-2.0); EOSINOPHILS % 0.5 % (0.0-5.0); HEMATOCRIT. 39.5 % (36.0-48.0); HEMOGLOBIN. 12.3 g/dL (12.0-16.0); LYMPHOCYTES % 13.4 % (20.0-50.0); MEAN CORPUSCULAR HEMOGLOBIN 24.7 pg (28.0-32.0); MEAN CORPUSCULAR VOLUME 79.7 fL (81.0-99.0); MEAN PLATELET VOLUME 8.8 fl (7.4-10.4); MONOCYTES % 7.8 % (2.0-8.0); PLATELET 320 x1000/uL (130-400); RED BLOOD CELL COUNT 4.96 mill/uL (4.2-5.4); RED CELL DISTRIBUTION WIDTH 16.3 % (11.6-14.6)
[2021-07-11] MEDS: INSULIN LISPRO 100 UNITS/ML SUBCUT SCH ×4 (06:39→23:01)
[2021-07-11 07:03] LABS: CHLORIDE 100 mEq/L (98-107)
[2021-07-11 08:00] VITALS: BP 132/77
[2021-07-11] MEDS: IPRATROPIUM/ALBUTEROL 0.5-3(2.5)MG/3ML NEB HHN SCH ×3 (08:57→21:24)
[2021-07-11] MEDS: ENOXAPARIN 120MG/0.8ML SYR SUBCUT SCH ×2 (09:00→21:00)
[2021-07-11] MEDS: FUROSEMIDE 40MG TABLET PO SCH (09:47)
[2021-07-11] MEDS: AZITHROMYCIN 500 MG TABLET PO SCH (09:47)
[2021-07-11] MEDS: SPIRONOLACTONE 25MG TABLET PO SCH (09:47)
[2021-07-11] MEDS: LOSARTAN POTASSIUM 50 MG TABLET PO SCH (09:47)
[2021-07-11] MEDS: GUAIFENESIN 200MG/10ML SUGAR FREE UDC PO PRN (09:54)
[2021-07-11] MEDS: INSULIN GLARGINE 100 UNITS/ML SUBCUT SCH (10:05)
[2021-07-11 13:58] LABS: PLATELET ESTIMATE NORMAL
[2021-07-11 20:00] VITALS: BP 128/57
[2021-07-11] MEDS: FAMOTIDINE 20MG TABLET PO SCH (21:18)
[2021-07-12] MEDS: IPRATROPIUM/ALBUTEROL 0.5-3(2.5)MG/3ML NEB HHN SCH ×5 (02:51→20:00)
[2021-07-12] MEDS: GABAPENTIN 100MG CAPSULE PO SCH ×3 (06:17→22:37)
[2021-07-12] MEDS: BLOOD SUGAR DIAGNOSTIC STRIP TEST SCH ×4 (06:21→21:25)
[2021-07-12 08:00] VITALS: BP 118/68
[2021-07-12] MEDS: INSULIN LISPRO 100 UNITS/ML SUBCUT SCH ×4 (09:00→22:42)
[2021-07-12] MEDS: SPIRONOLACTONE 25MG TABLET PO SCH (09:48)
[2021-07-12] MEDS: ENOXAPARIN 120MG/0.8ML SYR SUBCUT SCH ×2 (09:48→09:51)
[2021-07-12] MEDS: LOSARTAN POTASSIUM 50 MG TABLET PO SCH (09:48)
[2021-07-12] MEDS: FUROSEMIDE 40MG TABLET PO SCH (09:48)
[2021-07-12] MEDS: INSULIN GLARGINE 100 UNITS/ML SUBCUT SCH (09:49)
[2021-07-12] MEDS ORDERED: BISACODYL 5MG TABLET PO PRN (15:45)
[2021-07-12] MEDS ORDERED: NA PHOS,M-B/NA PHOS,DI-BA ENEMA 118ML PR PRN (15:45)
[2021-07-12] MEDS: DOCUSATE SODIUM 100MG CAPSULE PO SCH ×2 (15:45→17:00)
[2021-07-12 20:00] VITALS: BP 129/72
[2021-07-12] MEDS: FAMOTIDINE 20MG TABLET PO SCH (22:38)
[2021-07-13] MEDS: IPRATROPIUM/ALBUTEROL 0.5-3(2.5)MG/3ML NEB HHN SCH ×3 (00:40→21:10)
[2021-07-13] MEDS: BLOOD SUGAR DIAGNOSTIC STRIP TEST SCH ×4 (06:27→21:00)
[2021-07-13] MEDS: GABAPENTIN 100MG CAPSULE PO SCH ×3 (07:01→22:48)
[2021-07-13] MEDS: INSULIN LISPRO 100 UNITS/ML SUBCUT SCH ×4 (07:06→23:11)
[2021-07-13 08:00] VITALS: BP 135/64
[2021-07-13] MEDS: DOCUSATE SODIUM 100MG CAPSULE PO SCH ×2 (08:42→17:56)
[2021-07-13] MEDS: HYDROCODONE/APAP 7.5/325MG 1 TAB TABLET PO PRN (08:42)
[2021-07-13] MEDS: FUROSEMIDE 40MG TABLET PO SCH (08:42)
[2021-07-13] MEDS: SPIRONOLACTONE 25MG TABLET PO SCH (08:42)
[2021-07-13] MEDS: SENNOSIDES/DOCUSATE SOD 8.6/50MG TABLET PO PRN (08:42)
[2021-07-13] MEDS: LOSARTAN POTASSIUM 50 MG TABLET PO SCH (08:46)
[2021-07-13] MEDS: ENOXAPARIN 120MG/0.8ML SYR SUBCUT SCH ×2 (08:46→22:49)
[2021-07-13] MEDS: INSULIN GLARGINE 100 UNITS/ML SUBCUT SCH (11:50)
[2021-07-13 20:00] VITALS: BP 132/78
[2021-07-13] MEDS: FAMOTIDINE 20MG TABLET PO SCH (22:48)
[2021-07-13 23:00] VITALS: BP 130/70
[2021-07-14] MEDS: BLOOD SUGAR DIAGNOSTIC STRIP TEST SCH ×4 (06:53→21:00)
[2021-07-14] MEDS: GABAPENTIN 100MG CAPSULE PO SCH ×3 (06:53→22:11)
[2021-07-14] MEDS: INSULIN LISPRO 100 UNITS/ML SUBCUT SCH ×4 (07:03→22:17)
[2021-07-14 08:00] VITALS: BP 126/59
[2021-07-14] MEDS: LOSARTAN POTASSIUM 50 MG TABLET PO SCH (09:59)
[2021-07-14] MEDS: DOCUSATE SODIUM 100MG CAPSULE PO SCH ×2 (09:59→17:38)
[2021-07-14] MEDS: SPIRONOLACTONE 25MG TABLET PO SCH (09:59)
[2021-07-14] MEDS: FUROSEMIDE 40MG TABLET PO SCH (09:59)
[2021-07-14] MEDS: ENOXAPARIN 120MG/0.8ML SYR SUBCUT SCH ×2 (10:00→22:12)
[2021-07-14] MEDS: INSULIN GLARGINE 100 UNITS/ML SUBCUT SCH (10:06)
[2021-07-14] MEDS: HYDROCODONE/APAP 7.5/325MG 1 TAB TABLET PO PRN (10:12)
[2021-07-14] MEDS: IPRATROPIUM/ALBUTEROL 0.5-3(2.5)MG/3ML NEB HHN SCH ×2 (12:00→21:20)
[2021-07-14] MEDS ORDERED: BENZONATATE 100MG CAPSULE PO PRN (13:45)
[2021-07-14] MEDS: PHENOL/SODIUM PHENOLATE 1.4% SRPAY 177ML MT PRN (17:39)
[2021-07-14] MEDS: SENNOSIDES/DOCUSATE SOD 8.6/50MG TABLET PO PRN (17:41)
[2021-07-14 20:00] VITALS: BP 132/74
[2021-07-14] MEDS: FAMOTIDINE 20MG TABLET PO SCH (22:11)
[2021-07-15] MEDS: IPRATROPIUM/ALBUTEROL 0.5-3(2.5)MG/3ML NEB HHN SCH ×3 (01:59→21:06)
[2021-07-15] MEDS: BLOOD SUGAR DIAGNOSTIC STRIP TEST SCH ×4 (07:01→21:00)
[2021-07-15] MEDS: GABAPENTIN 100MG CAPSULE PO SCH ×3 (07:01→22:23)
[2021-07-15] MEDS: INSULIN LISPRO 100 UNITS/ML SUBCUT SCH ×4 (07:06→22:35)
[2021-07-15 08:00] VITALS: BP 124/73
[2021-07-15] MEDS: FUROSEMIDE 40MG TABLET PO SCH (09:45)
[2021-07-15] MEDS: LOSARTAN POTASSIUM 50 MG TABLET PO SCH (09:45)
[2021-07-15] MEDS: SPIRONOLACTONE 25MG TABLET PO SCH (09:46)
[2021-07-15] MEDS: DOCUSATE SODIUM 100MG CAPSULE PO SCH ×2 (09:47→17:43)
[2021-07-15] MEDS: HYDROCODONE/APAP 7.5/325MG 1 TAB TABLET PO PRN ×2 (09:47→22:27)
[2021-07-15] MEDS: ENOXAPARIN 120MG/0.8ML SYR SUBCUT SCH ×2 (09:48→22:25)
[2021-07-15] MEDS: INSULIN GLARGINE 100 UNITS/ML SUBCUT SCH (09:53)
[2021-07-15 10:32] LABS: BASOPHILS % 0.7 % (0.0-2.0); EOSINOPHILS % 2.4 % (0.0-5.0); HEMOGLOBIN. 11.9 g/dL (12.0-16.0); LYMPHOCYTES % 23.1 % (20.0-50.0); MEAN CORPUSCULAR HEMOGLOBIN 24.9 pg (28.0-32.0); MEAN CORPUSCULAR VOLUME 81.6 fL (81.0-99.0); MEAN PLATELET VOLUME 8.8 fl (7.4-10.4); MONOCYTES % 10.2 % (2.0-8.0); NEUTROPHILS % 63.6 % (40.0-76.0); PLATELET 312 x1000/uL (130-400); RED BLOOD CELL COUNT 4.78 mill/uL (4.2-5.4); RED CELL DISTRIBUTION WIDTH 16.9 % (11.6-14.6)
[2021-07-15 10:43] LABS: CHLORIDE 99 mEq/L (98-107)
[2021-07-15] MEDS: LETROZOLE 2.5MG TABLET PO SCH (17:44)
[2021-07-15] MEDS: NYSTATIN 100,000 UNITS/ML 5ML UDC SSW SCH (17:45)
[2021-07-15 20:00] VITALS: BP 112/70
[2021-07-15] MEDS: LATANOPROST 0.005% OPHTH DROPS 2.5ML EACHEYE SCH (22:23)
[2021-07-15] MEDS: FAMOTIDINE 20MG TABLET PO SCH (22:24)
[2021-07-15] MEDS: PHENOL/SODIUM PHENOLATE 1.4% SRPAY 177ML MT PRN (22:27)
[2021-07-16] MEDS: NYSTATIN 100,000 UNITS/ML 5ML UDC SSW SCH ×4 (06:00→17:38)
[2021-07-16] MEDS: BLOOD SUGAR DIAGNOSTIC STRIP TEST SCH ×4 (06:59→21:05)
[2021-07-16] MEDS: GABAPENTIN 100MG CAPSULE PO SCH ×3 (07:01→21:18)
[2021-07-16] MEDS: INSULIN LISPRO 100 UNITS/ML SUBCUT SCH ×4 (07:07→21:22)
[2021-07-16 08:00] VITALS: BP 116/60
[2021-07-16] MEDS: INSULIN GLARGINE 100 UNITS/ML SUBCUT SCH (10:00)
[2021-07-16] MEDS: SPIRONOLACTONE 25MG TABLET PO SCH (11:13)
[2021-07-16] MEDS: LOSARTAN POTASSIUM 50 MG TABLET PO SCH (11:13)
[2021-07-16] MEDS: FUROSEMIDE 40MG TABLET PO SCH (11:13)
[2021-07-16] MEDS: DOCUSATE SODIUM 100MG CAPSULE PO SCH ×2 (11:13→17:38)
[2021-07-16] MEDS: LETROZOLE 2.5MG TABLET PO SCH (11:15)
[2021-07-16] MEDS: ENOXAPARIN 120MG/0.8ML SYR SUBCUT SCH ×2 (11:15→21:19)
[2021-07-16] MEDS: HYDROCODONE/APAP 7.5/325MG 1 TAB TABLET PO PRN ×2 (11:21→21:46)
[2021-07-16] MEDS: GUAIFENESIN 200MG/10ML SUGAR FREE UDC PO PRN (11:21)
[2021-07-16 16:00] VITALS: BP 148/61
[2021-07-16] MEDS: LATANOPROST 0.005% OPHTH DROPS 2.5ML EACHEYE SCH (21:00)
[2021-07-16] MEDS: FAMOTIDINE 20MG TABLET PO SCH (21:19)
[2021-07-17] MEDS: HYDROCODONE/APAP 7.5/325MG 1 TAB TABLET PO PRN ×2 (06:41→11:04)
[2021-07-17] MEDS: BLOOD SUGAR DIAGNOSTIC STRIP TEST SCH ×3 (06:42→17:00)
[2021-07-17] MEDS: NYSTATIN 100,000 UNITS/ML 5ML UDC SSW SCH ×4 (06:42→18:00)
[2021-07-17] MEDS: GABAPENTIN 100MG CAPSULE PO SCH ×2 (06:44→14:12)
[2021-07-17 08:00] VITALS: BP 136/79
[2021-07-17] MEDS: INSULIN LISPRO 100 UNITS/ML SUBCUT SCH ×3 (09:00→14:14)
[2021-07-17] MEDS: LETROZOLE 2.5MG TABLET PO SCH (09:00)
[2021-07-17] MEDS: DOCUSATE SODIUM 100MG CAPSULE PO SCH ×2 (09:46→18:29)
[2021-07-17] MEDS: SPIRONOLACTONE 25MG TABLET PO SCH (09:46)
[2021-07-17] MEDS: LOSARTAN POTASSIUM 50 MG TABLET PO SCH (09:47)
[2021-07-17] MEDS: FUROSEMIDE 40MG TABLET PO SCH (09:47)
[2021-07-17] MEDS: APIXABAN 5 MG TABLET PO SCH ×2 (09:54→18:29)
[2021-07-17] MEDS: INSULIN GLARGINE 100 UNITS/ML SUBCUT SCH (10:00)
[2021-07-17] MEDS ORDERED: NALOXONE HCL 0.4MG/ML VIAL IV PRN (15:30)
[2021-07-17 15:53] VITALS: BP 136/79
== END 2021-07-17 19:04 | disposition home or self-care (01) | DRG 280 ==
PROVIDERS: ADMIT Psychiatry & Neurology Neurology; ATTEND Internal Medicine
PROC: 0HBRXZZ Excision of Toe Nail, External Approach (ICD-10-PCS; principal; 2021-07-14)
PROC: 0HBRXZZ Excision of Toe Nail, External Approach (ICD-10-PCS; 2021-07-14)
PROC: 0HBRXZZ Excision of Toe Nail, External Approach (ICD-10-PCS; 2021-07-14)
PROC: 0HBRXZZ Excision of Toe Nail, External Approach (ICD-10-PCS; 2021-07-14)
PROC: 0HBRXZZ Excision of Toe Nail, External Approach (ICD-10-PCS; 2021-07-14)
PROC: 0HBRXZZ Excision of Toe Nail, External Approach (ICD-10-PCS; 2021-07-14)
PROC: 0HBRXZZ Excision of Toe Nail, External Approach (ICD-10-PCS; 2021-07-14)
PROC: 0HBRXZZ Excision of Toe Nail, External Approach (ICD-10-PCS; 2021-07-14)
PROC: 0HBRXZZ Excision of Toe Nail, External Approach (ICD-10-PCS; 2021-07-14)
PROC: 0HBRXZZ Excision of Toe Nail, External Approach (ICD-10-PCS; 2021-07-14)
DX: I11.0 Hypertensive heart disease with heart failure (principal); I21.4 Non-ST elevation (NSTEMI) myocardial infarction; I50.33 Acute on chronic diastolic (congestive) heart failure; Z68.42 Body mass index [BMI] 45.0-49.9, adult; I48.92 Unspecified atrial flutter; J44.1 Chronic obstructive pulmonary disease with (acute) exacerbation; M79.606 Pain in leg, unspecified; I42.8 Other cardiomyopathies; E11.65 Type 2 diabetes mellitus with hyperglycemia; E11.42 Type 2 diabetes mellitus with diabetic polyneuropathy; D64.9 Anemia, unspecified; E66.01 Morbid (severe) obesity due to excess calories; E78.5 Hyperlipidemia, unspecified; E87.5 Hyperkalemia; I27.20 Pulmonary hypertension, unspecified; I34.0 Nonrheumatic mitral (valve) insufficiency; I48.0 Paroxysmal atrial fibrillation; M47.819 Spondylosis without myelopathy or radiculopathy, site unspecified; M48.02 Spinal stenosis, cervical region; Z96.652 Presence of left artificial knee joint; B35.1 Tinea unguium; B37.9 Candidiasis, unspecified; F09 Unspecified mental disorder due to known physiological condition; F39 Unspecified mood [affective] disorder; R26.2 Difficulty in walking, not elsewhere classified; G31.84 Mild cognitive impairment of uncertain or unknown etiology; L60.2 Onychogryphosis; R32 Unspecified urinary incontinence; Z85.3 Personal history of malignant neoplasm of breast; Z86.16 Personal history of COVID-19; Z79.01 Long term (current) use of anticoagulants; Z79.811 Long term (current) use of aromatase inhibitors; Z79.82 Long term (current) use of aspirin; Z79.84 Long term (current) use of oral hypoglycemic drugs; Z79.899 Other long term (current) drug therapy; Z87.891 Personal history of nicotine dependence; Z88.8 Allergy status to other drugs, medicaments and biological substances; Z91.040 Latex allergy status
CPT/HCPCS: 36415; 71045; 80048; 80053; 82962; 83735; 85025; 93923; 94640; 97110; 97116; 97162; 97166; 97530; 97535; J0696; J1100; J1650; J1815; J7060

== ENCOUNTER 2021-10-13 11:30 | Inpatient (IN) | payer MEDICARE, MEDICAID ==
[~2021-10-13] VITALS: Ht 162.6 cm; Wt 102.6 kg
[~2021-10-13 11:30] MED LIST changes: -FURO-152 MT; +GABA-532 PO; -LATA2.5D14 EACHEYE; -LIP40 PO; -LORA-249 PO; -TRAZ-252 PO
[2021-10-13] MEDS ORDERED: RIVA20TA PO (11:50)
[2021-10-13] MEDS ORDERED: NITROGLYCERIN OINT 1GM/INCH UDPKT TD ONE (12:30)
[2021-10-13] MEDS ORDERED: ASPIRIN 81MG TABLET PO ONE (12:30)
[2021-10-13] MEDS ORDERED: FUROSEMIDE 40MG/4ML VIAL IV ONE (12:30)
[2021-10-13] MEDS ORDERED: INSULIN REGULAR (HUMULIN R) 300UNITS/3ML VIAL SUBCUT ONE ×2 (12:45→13:45)
[2021-10-13 15:22] LABS: CHLORIDE 98 mEq/L (98-107)
[2021-10-13 15:23] LABS: HEMATOCRIT. 38.1 % (36.0-48.0); HEMOGLOBIN. 11.8 g/dL (12.0-16.0); MEAN CORPUSCULAR HEMOGLOBIN 25.2 pg (28.0-32.0); MEAN CORPUSCULAR VOLUME 81.2 fL (81.0-99.0); MEAN PLATELET VOLUME 9.1 fl (7.4-10.4); PLATELET 251 x1000/uL (130-400); RED CELL DISTRIBUTION WIDTH 18.5 % (11.6-14.6)
[2021-10-13 15:42] LABS: BETA HYDROXYBUTYRATE 0.1 mMol/L (0.0-0.3)
[2021-10-13 16:10] LABS: INR 1.4; PROTHROMBIN TIME 14.2 sec (9.6-11.0)
[2021-10-13 17:04] LABS: PLATELET ESTIMATE NORMAL
[2021-10-13] MEDS: AMLODIPINE 10MG TABLET PO SCH (17:16)
[2021-10-13] MEDS: SPIRONOLACTONE 25MG TABLET PO SCH (17:16)
[2021-10-13] MEDS: ENOXAPARIN 100MG/ML SYR SUBCUT SCH (17:21)
[2021-10-13 18:07] LABS: CLARITY URINE CLEAR (CLEAR); COLOR URINE YELLOW (YELLOW); KETONES URINE NEGATIVE (NEGATIVE); LEUKOCYTE ESTERASE URINE NEGATIVE (NEGATIVE); NITRITE URINE NEGATIVE (NEGATIVE); OCCULT BLOOD URINE TRACE (NEGATIVE); PH URINE 7.5 (4.5-8.0); PROTEIN URINE NEGATIVE (NEGATIVE); SPECIFIC GRAVITY URINE 1.009 (1.005-1.030); UROBILINOGEN URINE 0.2 E.U./dL (0.2-1.0)
[2021-10-13 19:00] VITALS: BP 144/75
[2021-10-13 19:15] VITALS: BP 144/75
[2021-10-13 20:00] VITALS: BP 146/57
[2021-10-14] VITALS (7 sets, daily range): BP systolic 98–144; BP diastolic 46–69
[2021-10-14] MEDS: ENOXAPARIN 100MG/ML SYR SUBCUT SCH ×2 (05:18→18:03)
[2021-10-14 07:29] LABS: INR 1.2; PROTHROMBIN TIME 12.3 sec (9.6-11.0)
[2021-10-14 07:31] LABS: BASOPHILS % 0.2 % (0.0-2.0); EOSINOPHILS % 0.9 % (0.0-5.0); HEMATOCRIT. 37.5 % (36.0-48.0); HEMOGLOBIN. 11.9 g/dL (12.0-16.0); LYMPHOCYTES % 13.1 % (20.0-50.0); MEAN CORPUSCULAR HEMOGLOBIN 25.2 pg (28.0-32.0); MEAN CORPUSCULAR VOLUME 79.5 fL (81.0-99.0); MEAN PLATELET VOLUME 9.2 fl (7.4-10.4); MONOCYTES % 6.4 % (2.0-8.0); NEUTROPHILS % 79.4 % (40.0-76.0); PLATELET 261 x1000/uL (130-400); RED BLOOD CELL COUNT 4.72 mill/uL (4.2-5.4); RED CELL DISTRIBUTION WIDTH 18.4 % (11.6-14.6)
[2021-10-14 07:45] LABS: CHLORIDE 99 mEq/L (98-107)
[2021-10-14] MEDS ORDERED: HYDROCODONE/APAP 7.5/325MG 1 TAB TABLET PO PRN (09:30)
[2021-10-14] MEDS: DILTIAZEM HCL 180MG CAPSULE CD 24HR PO SCH (09:38)
[2021-10-14] MEDS: FUROSEMIDE 40MG/4ML VIAL IVP SCH (09:38)
[2021-10-14] MEDS: SPIRONOLACTONE 25MG TABLET PO SCH (09:38)
[2021-10-14] MEDS: AMLODIPINE 10MG TABLET PO SCH (09:39)
[2021-10-14] MEDS ORDERED: NALOXONE HCL 0.4MG/ML VIAL IV PRN (10:15)
[2021-10-14] MEDS ORDERED: DEXTROSE 50% WATER 50ML SYRINGE IV PRN (13:15)
[2021-10-14] MEDS: BLOOD SUGAR DIAGNOSTIC STRIP TEST SCH ×2 (17:54→21:00)
[2021-10-14] MEDS: INSULIN LISPRO 100 UNITS/ML SUBCUT SCH ×2 (18:02→21:43)
[2021-10-14] MEDS: ATORVASTATIN CALCIUM 40MG TABLET PO SCH (21:41)
[2021-10-14] MEDS: HYDROCODONE/ACETAMINOPHEN 10/325MG TABLET PO PRN (21:52)
[2021-10-14] MEDS ORDERED: COLCHICINE 0.6MG TABLET PO NR (22:14)
[2021-10-14] MEDS ORDERED: COLCHICINE 0.6MG TABLET PO SCH (23:15)
[2021-10-14] MEDS: PREDNISONE 20MG TABLET PO SCH (23:57)
[2021-10-15] VITALS: BP 159/65
[2021-10-15] MEDS: IPRATROPIUM/ALBUTEROL 0.5-3(2.5)MG/3ML NEB HHN SCH ×6 (00:30→21:27)
[2021-10-15 04:00] VITALS: BP 151/75
[2021-10-15] MEDS: HYDROCODONE/ACETAMINOPHEN 10/325MG TABLET PO PRN ×2 (05:52→10:54)
[2021-10-15] MEDS: ENOXAPARIN 100MG/ML SYR SUBCUT SCH ×2 (06:00→17:41)
[2021-10-15] MEDS: BLOOD SUGAR DIAGNOSTIC STRIP TEST SCH ×4 (06:42→21:19)
[2021-10-15 07:24] LABS: CHLORIDE 98 mEq/L (98-107)
[2021-10-15 07:33] LABS: HEMATOCRIT. 37.3 % (36.0-48.0); HEMOGLOBIN. 11.7 g/dL (12.0-16.0); MEAN CORPUSCULAR HEMOGLOBIN 25.1 pg (28.0-32.0); MEAN PLATELET VOLUME 9.2 fl (7.4-10.4); PLATELET 273 x1000/uL (130-400); RED BLOOD CELL COUNT 4.66 mill/uL (4.2-5.4); RED CELL DISTRIBUTION WIDTH 18.7 % (11.6-14.6)
[2021-10-15 08:00] VITALS: BP 120/87
[2021-10-15] MEDS: INSULIN LISPRO 100 UNITS/ML SUBCUT SCH ×4 (09:01→21:19)
[2021-10-15] MEDS: FUROSEMIDE 40MG/4ML VIAL IVP SCH (09:02)
[2021-10-15] MEDS: DILTIAZEM HCL 180MG CAPSULE CD 24HR PO SCH (09:02)
[2021-10-15] MEDS: COLCHICINE 0.6MG TABLET PO SCH ×2 (09:03→21:14)
[2021-10-15] MEDS: PREDNISONE 20MG TABLET PO SCH ×3 (09:03→17:40)
[2021-10-15] MEDS: SPIRONOLACTONE 25MG TABLET PO SCH (09:04)
[2021-10-15] MEDS: AMLODIPINE 10MG TABLET PO SCH (09:04)
[2021-10-15 11:00] LABS: PLATELET ESTIMATE NORMAL
[2021-10-15 12:00] VITALS: BP 118/76
[2021-10-15 16:00] VITALS: BP 125/80
[2021-10-15 20:00] VITALS: BP 114/78
[2021-10-15] MEDS: ATORVASTATIN CALCIUM 40MG TABLET PO SCH (21:12)
[2021-10-15] MEDS ORDERED: INSULIN LISPRO 100 UNITS/ML SUBCUT NR (22:15)
[2021-10-16] VITALS: BP 115/55
[2021-10-16] MEDS: IPRATROPIUM/ALBUTEROL 0.5-3(2.5)MG/3ML NEB HHN SCH ×6 (00:47→20:50)
[2021-10-16 04:00] VITALS: BP 126/78
[2021-10-16] MEDS: ENOXAPARIN 100MG/ML SYR SUBCUT SCH ×2 (05:55→17:52)
[2021-10-16] MEDS: BLOOD SUGAR DIAGNOSTIC STRIP TEST SCH ×4 (06:06→21:03)
[2021-10-16 08:00] VITALS: BP 128/71
[2021-10-16] MEDS: COLCHICINE 0.6MG TABLET PO SCH ×2 (08:46→21:17)
[2021-10-16] MEDS: PREDNISONE 20MG TABLET PO SCH ×3 (08:46→17:51)
[2021-10-16] MEDS: DILTIAZEM HCL 180MG CAPSULE CD 24HR PO SCH (08:46)
[2021-10-16] MEDS: FUROSEMIDE 40MG/4ML VIAL IVP SCH (08:46)
[2021-10-16] MEDS: SPIRONOLACTONE 25MG TABLET PO SCH (08:46)
[2021-10-16] MEDS: INSULIN LISPRO 100 UNITS/ML SUBCUT SCH ×4 (08:48→21:17)
[2021-10-16 11:23] LABS: HEMATOCRIT. 35.6 % (36.0-48.0); HEMOGLOBIN. 11.3 g/dL (12.0-16.0); MEAN CORPUSCULAR HEMOGLOBIN 25.3 pg (28.0-32.0); MEAN CORPUSCULAR VOLUME 79.9 fL (81.0-99.0); MEAN PLATELET VOLUME 8.4 fl (7.4-10.4); PLATELET 265 x1000/uL (130-400); RED BLOOD CELL COUNT 4.45 mill/uL (4.2-5.4); RED CELL DISTRIBUTION WIDTH 18.1 % (11.6-14.6)
[2021-10-16 12:00] VITALS: BP 125/68
[2021-10-16] MEDS: HYDROCODONE/ACETAMINOPHEN 10/325MG TABLET PO PRN ×2 (12:14→21:22)
[2021-10-16 12:58] LABS: PLATELET ESTIMATE NORMAL
[2021-10-16] MEDS ORDERED: ALLO100T MT (13:59)
[2021-10-16] MEDS ORDERED: P20 PO (13:59)
[2021-10-16] MEDS ORDERED: INSULIN GLARGINE 100 UNITS/ML SUBCUT NR (14:00)
[2021-10-16 16:00] VITALS: BP 132/77
[2021-10-16] MEDS: ALLOPURINOL 100 MG TABLET PO SCH (18:27)
[2021-10-16 20:00] VITALS: BP 127/79
[2021-10-16] MEDS ORDERED: LACTULOSE 20G/30ML UDC PO PRN (20:15)
[2021-10-16] MEDS: ATORVASTATIN CALCIUM 40MG TABLET PO SCH (21:17)
[2021-10-16] MEDS ORDERED: INSULIN GLARGINE 100 UNITS/ML SUBCUT SCH (22:00)
[2021-10-17] VITALS (7 sets, daily range): BP systolic 93–142; BP diastolic 62–91
[2021-10-17] MEDS: IPRATROPIUM/ALBUTEROL 0.5-3(2.5)MG/3ML NEB HHN SCH ×6 (00:39→21:49)
[2021-10-17] MEDS: ENOXAPARIN 100MG/ML SYR SUBCUT SCH ×2 (06:29→18:18)
[2021-10-17] MEDS: BLOOD SUGAR DIAGNOSTIC STRIP TEST SCH ×4 (06:33→20:30)
[2021-10-17 08:31] LABS: HEMATOCRIT. 35.2 % (36.0-48.0); MEAN CORPUSCULAR HEMOGLOBIN 25.3 pg (28.0-32.0); MEAN PLATELET VOLUME 9.2 fl (7.4-10.4); PLATELET 290 x1000/uL (130-400); RED BLOOD CELL COUNT 4.34 mill/uL (4.2-5.4); RED CELL DISTRIBUTION WIDTH 18.2 % (11.6-14.6)
[2021-10-17] MEDS: SPIRONOLACTONE 25MG TABLET PO SCH (08:31)
[2021-10-17] MEDS: PREDNISONE 20MG TABLET PO SCH (08:31)
[2021-10-17] MEDS: COLCHICINE 0.6MG TABLET PO SCH (08:32)
[2021-10-17] MEDS: FUROSEMIDE 40MG/4ML VIAL IVP SCH (08:32)
[2021-10-17] MEDS: DILTIAZEM HCL 180MG CAPSULE CD 24HR PO SCH (08:32)
[2021-10-17] MEDS: INSULIN LISPRO 100 UNITS/ML SUBCUT SCH ×4 (08:34→20:31)
[2021-10-17] MEDS: ALLOPURINOL 100 MG TABLET PO SCH (08:37)
[2021-10-17] MEDS: HYDROCODONE/ACETAMINOPHEN 10/325MG TABLET PO PRN (08:47)
[2021-10-17] MEDS: INSULIN GLARGINE 100 UNITS/ML SUBCUT SCH ×2 (11:46→21:56)
[2021-10-17] MEDS ORDERED: PREDNISONE 20MG TABLET PO SCH (17:00)
[2021-10-17] MEDS ORDERED: GUAIFENESIN 600MG ER TABLET PO SCH (17:00)
[2021-10-17] MEDS ORDERED: METHYLPREDNISOLONE SOD SUCC 40 MG/ML VIAL IV SCH (17:00)
[2021-10-17 17:21] LABS: PLATELET ESTIMATE NORMAL
[2021-10-17] MEDS ORDERED: LEVOFLOXACIN 500MG PREMIX 100 ML IV SCH (18:00)
[2021-10-17] MEDS: ATORVASTATIN CALCIUM 40MG TABLET PO SCH (20:30)
== END 2021-10-17 22:49 | DRG 291 ==
LOC: ER 11:30 → 7WST 15:01 → ENRESERV 17:24 → ER 17:39 → 7WST 19:53
PROVIDERS: ADMIT Internal Medicine; ATTEND Internal Medicine
DX: I11.0 Hypertensive heart disease with heart failure (principal); I50.33 Acute on chronic diastolic (congestive) heart failure; I31.3 Pericardial effusion (noninflammatory); I42.8 Other cardiomyopathies; Z85.3 Personal history of malignant neoplasm of breast; I48.0 Paroxysmal atrial fibrillation; J44.9 Chronic obstructive pulmonary disease, unspecified; E78.00 Pure hypercholesterolemia, unspecified; E11.9 Type 2 diabetes mellitus without complications; R91.8 Other nonspecific abnormal finding of lung field; I34.0 Nonrheumatic mitral (valve) insufficiency; J06.9 Acute upper respiratory infection, unspecified; E66.01 Morbid (severe) obesity due to excess calories; Z96.652 Presence of left artificial knee joint; M10.9 Gout, unspecified; I27.20 Pulmonary hypertension, unspecified; Z86.16 Personal history of COVID-19; Z87.01 Personal history of pneumonia (recurrent); Z68.38 Body mass index [BMI] 38.0-38.9, adult; Z91.040 Latex allergy status; Z91.048 Other nonmedicinal substance allergy status; Z79.82 Long term (current) use of aspirin; Z79.899 Other long term (current) drug therapy; R26.89 Other abnormalities of gait and mobility; R53.1 Weakness; R06.03 Acute respiratory distress
CPT/HCPCS: 36415; 71045; 71250; 73590; 73630; 80048; 80053; 81003; 82010; 82962; 83036; 83880; 84145; 84484; 84550; 85025; 85651; 86141; 93005; 93970; 94640; 97162; 97166; 99285; J1650; J1815; J1940; J1956; J2920; J7512

== ENCOUNTER 2021-10-17 22:40 | Inpatient (IN) | payer MEDICARE, MEDICAID ==
[~2021-10-17] VITALS: Ht 162.6 cm; Wt 114.8 kg
[~2021-10-17 22:40] MED LIST changes: +ALLO100T MT; -GABA-532 PO; +P20 PO
[2021-10-17 23:00] VITALS: BP 128/76
[2021-10-18] MEDS ORDERED: NALOXONE HCL 0.4 MG/ML 1ML VIAL IV PRN (00:45)
[2021-10-18] MEDS ORDERED: DEXTROSE 50% WATER 50ML SYRINGE IV PRN (00:45)
[2021-10-18] MEDS ORDERED: LACTULOSE 20G/30ML UDC PO PRN (00:45)
[2021-10-18] MEDS ORDERED: *PATIENT'S OWN MEDICATION STORAGE XX SCH (04:00)
[2021-10-18] MEDS: IPRATROPIUM/ALBUTEROL 0.5-3(2.5)MG/3ML NEB HHN SCH ×4 (04:12→20:49)
[2021-10-18] MEDS: METHYLPREDNISOLONE SOD SUCC 40 MG/ML VIAL IV SCH ×2 (06:06→18:30)
[2021-10-18] MEDS: ENOXAPARIN 100MG/ML SYR SUBCUT SCH ×2 (06:06→18:30)
[2021-10-18] MEDS: BLOOD SUGAR DIAGNOSTIC STRIP TEST SCH ×4 (06:07→20:55)
[2021-10-18 07:00] LABS: CHLORIDE 94 mEq/L (98-107)
[2021-10-18 07:04] LABS: HEMATOCRIT. 35.5 % (36.0-48.0); HEMOGLOBIN. 11.1 g/dL (12.0-16.0); MEAN CORPUSCULAR HEMOGLOBIN 25.1 pg (28.0-32.0); MEAN CORPUSCULAR VOLUME 80.8 fL (81.0-99.0); MEAN PLATELET VOLUME 8.8 fl (7.4-10.4); PLATELET 315 x1000/uL (130-400); RED CELL DISTRIBUTION WIDTH 18.8 % (11.6-14.6)
[2021-10-18] MEDS: INSULIN LISPRO 100 UNITS/ML SUBCUT SCH ×5 (07:33→21:09)
[2021-10-18 08:00] VITALS: BP 105/72
[2021-10-18] MEDS: ALLOPURINOL 100 MG TABLET PO SCH (09:33)
[2021-10-18] MEDS: SPIRONOLACTONE 25MG TABLET PO SCH (09:34)
[2021-10-18] MEDS: DILTIAZEM HCL 180MG CAPSULE CD 24HR PO SCH (09:35)
[2021-10-18] MEDS: GUAIFENESIN 600MG ER TABLET PO SCH ×2 (09:35→20:34)
[2021-10-18] MEDS: FUROSEMIDE 40MG/4ML VIAL IVP SCH (09:35)
[2021-10-18] MEDS ORDERED: INSULIN GLARGINE 100 UNITS/ML SUBCUT SCH (10:00)
[2021-10-18] MEDS ORDERED: GUAIFENESIN 200MG/10ML SUGAR FREE UDC PO PRN (18:00)
[2021-10-18] MEDS: LEVOFLOXACIN 500MG PREMIX 100 ML IV SCH (18:30)
[2021-10-18] MEDS: SENNOSIDES/DOCUSATE SOD 8.6/50MG TABLET PO PRN (18:35)
[2021-10-18 20:00] VITALS: BP 119/78
[2021-10-18] MEDS: ATORVASTATIN CALCIUM 40MG TABLET PO SCH (20:34)
[2021-10-18] MEDS: LATANOPROST 0.005% OPHTH DROPS 2.5ML BOTHEYE SCH (20:34)
[2021-10-18] MEDS: INSULIN GLARGINE 100 UNITS/ML SUBCUT SCH (21:10)
[2021-10-19 00:06] LABS: PLATELET ESTIMATE NORMAL
[2021-10-19] MEDS: IPRATROPIUM/ALBUTEROL 0.5-3(2.5)MG/3ML NEB HHN SCH ×6 (00:20→21:19)
[2021-10-19] MEDS: ENOXAPARIN 100MG/ML SYR SUBCUT SCH ×2 (05:17→17:28)
[2021-10-19] MEDS: METHYLPREDNISOLONE SOD SUCC 40 MG/ML VIAL IV SCH ×2 (05:17→17:28)
[2021-10-19] MEDS: BLOOD SUGAR DIAGNOSTIC STRIP TEST SCH ×4 (06:38→21:00)
[2021-10-19] MEDS: INSULIN LISPRO 100 UNITS/ML SUBCUT SCH ×4 (06:44→22:36)
[2021-10-19 08:00] VITALS: BP 147/63
[2021-10-19] MEDS: HYDROCODONE/ACETAMINOPHEN 10/325MG TABLET PO PRN ×2 (08:55→22:49)
[2021-10-19] MEDS: SPIRONOLACTONE 25MG TABLET PO SCH (08:55)
[2021-10-19] MEDS: GUAIFENESIN 600MG ER TABLET PO SCH ×2 (08:56→21:00)
[2021-10-19] MEDS: FUROSEMIDE 40MG/4ML VIAL IVP SCH (08:56)
[2021-10-19] MEDS: ALLOPURINOL 100 MG TABLET PO SCH (08:59)
[2021-10-19] MEDS ORDERED: POLYVINYL ALCOHOL OPHTH DROPS 15ML BOTHEYE PRN (09:00)
[2021-10-19] MEDS ORDERED: FLUTICASONE PROPIONATE 50MCG/SPRAY BOTTLE BOTHNSTRLS SCH (09:00)
[2021-10-19] MEDS: DILTIAZEM HCL 180MG CAPSULE CD 24HR PO SCH (09:00)
[2021-10-19] MEDS: INSULIN GLARGINE 100 UNITS/ML SUBCUT SCH ×2 (10:59→22:35)
[2021-10-19] MEDS ORDERED: LACTULOSE 20G/30ML UDC PO PRN (15:30)
[2021-10-19] MEDS ORDERED: BISACODYL 5MG TABLET PO PRN (15:30)
[2021-10-19] MEDS: LEVOFLOXACIN 500MG PREMIX 100 ML IV SCH (17:28)
[2021-10-19 20:24] VITALS: BP 154/80
[2021-10-19] MEDS: ATORVASTATIN CALCIUM 40MG TABLET PO SCH (22:30)
[2021-10-19] MEDS: LATANOPROST 0.005% OPHTH DROPS 2.5ML BOTHEYE SCH (22:30)
[2021-10-20] MEDS: IPRATROPIUM/ALBUTEROL 0.5-3(2.5)MG/3ML NEB HHN SCH ×5 (00:13→20:24)
[2021-10-20] MEDS: BLOOD SUGAR DIAGNOSTIC STRIP TEST SCH ×4 (06:36→21:18)
[2021-10-20] MEDS: ENOXAPARIN 100MG/ML SYR SUBCUT SCH ×2 (06:37→17:12)
[2021-10-20] MEDS: METHYLPREDNISOLONE SOD SUCC 40 MG/ML VIAL IV SCH ×2 (06:37→17:11)
[2021-10-20] MEDS: INSULIN LISPRO 100 UNITS/ML SUBCUT SCH ×4 (06:44→21:16)
[2021-10-20] MEDS: HYDROCODONE/ACETAMINOPHEN 10/325MG TABLET PO PRN ×3 (06:52→21:59)
[2021-10-20 08:00] VITALS: BP 146/88
[2021-10-20] MEDS: FUROSEMIDE 40MG/4ML VIAL IVP SCH (08:57)
[2021-10-20] MEDS: DILTIAZEM HCL 180MG CAPSULE CD 24HR PO SCH (08:58)
[2021-10-20] MEDS: SPIRONOLACTONE 25MG TABLET PO SCH (08:58)
[2021-10-20] MEDS: ALLOPURINOL 100 MG TABLET PO SCH (08:59)
[2021-10-20] MEDS: GUAIFENESIN 600MG ER TABLET PO SCH ×2 (09:00→21:00)
[2021-10-20] MEDS ORDERED: HYDRALAZINE 10 MG in SODIUM CHLORIDE 0.9% 49.5 ML IV PRN (10:00)
[2021-10-20] MEDS ORDERED: HYDRALAZINE 20MG/ML VIAL IV PRN (10:00)
[2021-10-20] MEDS: INSULIN GLARGINE 100 UNITS/ML SUBCUT SCH ×2 (10:11→21:17)
[2021-10-20] MEDS: LEVOFLOXACIN 500MG TABLET PO SCH (10:49)
[2021-10-20] MEDS: SENNOSIDES/DOCUSATE SOD 8.6/50MG TABLET PO PRN (17:13)
[2021-10-20 20:00] VITALS: BP 135/70
[2021-10-20] MEDS: LATANOPROST 0.005% OPHTH DROPS 2.5ML BOTHEYE SCH (21:06)
[2021-10-20] MEDS: HYDRALAZINE HCL 50MG TABLET PO SCH (21:07)
[2021-10-20] MEDS: ATORVASTATIN CALCIUM 40MG TABLET PO SCH (21:07)
[2021-10-21] MEDS: IPRATROPIUM/ALBUTEROL 0.5-3(2.5)MG/3ML NEB HHN SCH ×6 (01:22→20:55)
[2021-10-21 05:50] VITALS: BP 133/76
[2021-10-21] MEDS: METHYLPREDNISOLONE SOD SUCC 40 MG/ML VIAL IV SCH ×2 (05:50→18:33)
[2021-10-21] MEDS: INSULIN LISPRO 100 UNITS/ML SUBCUT SCH ×3 (05:58→17:00)
[2021-10-21] MEDS: BLOOD SUGAR DIAGNOSTIC STRIP TEST SCH ×3 (05:59→17:31)
[2021-10-21] MEDS: ENOXAPARIN 100MG/ML SYR SUBCUT SCH (05:59)
[2021-10-21 08:00] VITALS: BP 147/75
[2021-10-21] MEDS: ALLOPURINOL 100 MG TABLET PO SCH (09:54)
[2021-10-21] MEDS: GUAIFENESIN 600MG ER TABLET PO SCH ×2 (09:55→20:37)
[2021-10-21] MEDS: DILTIAZEM HCL 180MG CAPSULE CD 24HR PO SCH (09:55)
[2021-10-21] MEDS: FUROSEMIDE 40MG/4ML VIAL IVP SCH (09:56)
[2021-10-21] MEDS: HYDRALAZINE HCL 50MG TABLET PO SCH ×2 (09:56→20:38)
[2021-10-21] MEDS: SPIRONOLACTONE 25MG TABLET PO SCH (09:56)
[2021-10-21] MEDS: INSULIN GLARGINE 100 UNITS/ML SUBCUT SCH (10:09)
[2021-10-21] MEDS: LEVOFLOXACIN 500MG TABLET PO SCH (12:10)
[2021-10-21] MEDS: HYDROCODONE/ACETAMINOPHEN 10/325MG TABLET PO PRN ×2 (14:39→20:39)
[2021-10-21 15:06] LABS: BG BASE EXCESS 4.1 mmol/L (-2.0-2.0); BG CARBOXYHEMOGLOBIN 0.6 % (0.5-1.5); BG DEOXYHEMOGLOBIN 4.3 % (0.0-5.0); BG FRACTION INSPIRED OXYGEN 32; BG HCO3 ACT 27.8 mmol/L (22.0-26.0); BG METHEMOGLOBIN 0.3 % (0.0-1.5); BG OXYGEN SATURATION 95.7 % (92.0-98.5); BG OXYHEMOGLOBIN 94.8 % (94.0-97.0); BG PCO2 38.5 mmHg (35.0-45.0); BG PH 7.476 (7.350-7.450); BG PO2 74.2 mmHg (75.0-100.0); BG SAMPLE SITE RIGHT RADIAL; BG TOTAL HEMOGLOBIN 12.6 g/dL (12.0-18.0); BG VENT MODE NASAL CANNULA
[2021-10-21 17:34] LABS: HEMATOCRIT. 36.8 % (36.0-48.0); HEMOGLOBIN. 11.5 g/dL (12.0-16.0); MEAN CORPUSCULAR HEMOGLOBIN 25.2 pg (28.0-32.0); MEAN CORPUSCULAR VOLUME 80.6 fL (81.0-99.0); MEAN PLATELET VOLUME 8.8 fl (7.4-10.4); PLATELET 356 x1000/uL (130-400); RED BLOOD CELL COUNT 4.56 mill/uL (4.2-5.4); RED CELL DISTRIBUTION WIDTH 18.3 % (11.6-14.6)
[2021-10-21 17:50] LABS: CHLORIDE 97 mEq/L (98-107)
[2021-10-21 18:35] LABS: PLATELET ESTIMATE NORMAL
[2021-10-21 19:49] VITALS: BP 147/75
[2021-10-21] MEDS ORDERED: MEROPENEM 500 MG in SODIUM CHLORIDE 0.9% 50 ML IV SCH (20:00)
[2021-10-21] MEDS: ATORVASTATIN CALCIUM 40MG TABLET PO SCH (20:37)
[2021-10-21 20:39] VITALS: BP 127/68
[2021-10-21] MEDS: LATANOPROST 0.005% OPHTH DROPS 2.5ML BOTHEYE SCH (20:40)
[2021-10-21] MEDS ORDERED: LETROZOLE 2.5MG TABLET PO SCH (21:00)
[2021-10-21] MEDS ORDERED: ACETYLCYSTEINE 200MG/ML 20% VIAL 4ML INH SCH (22:00)
== END 2021-10-21 21:50 | disposition short-term general hospital (02) | DRG 291 ==
PROVIDERS: ADMIT Psychiatry & Neurology Neurology; ATTEND Internal Medicine
PROC: 0HBRXZZ Excision of Toe Nail, External Approach (ICD-10-PCS; principal; 2021-10-19)
PROC: 0HBRXZZ Excision of Toe Nail, External Approach (ICD-10-PCS; 2021-10-19)
PROC: 0HBRXZZ Excision of Toe Nail, External Approach (ICD-10-PCS; 2021-10-19)
PROC: 0HBRXZZ Excision of Toe Nail, External Approach (ICD-10-PCS; 2021-10-19)
PROC: 0HBRXZZ Excision of Toe Nail, External Approach (ICD-10-PCS; 2021-10-19)
PROC: 0HBRXZZ Excision of Toe Nail, External Approach (ICD-10-PCS; 2021-10-19)
PROC: 0HBRXZZ Excision of Toe Nail, External Approach (ICD-10-PCS; 2021-10-19)
PROC: 0HBRXZZ Excision of Toe Nail, External Approach (ICD-10-PCS; 2021-10-19)
PROC: 0HBRXZZ Excision of Toe Nail, External Approach (ICD-10-PCS; 2021-10-19)
PROC: 0HBRXZZ Excision of Toe Nail, External Approach (ICD-10-PCS; 2021-10-19)
DX: I11.0 Hypertensive heart disease with heart failure (principal); I50.33 Acute on chronic diastolic (congestive) heart failure; J18.9 Pneumonia, unspecified organism; J44.1 Chronic obstructive pulmonary disease with (acute) exacerbation; E87.1 Hypo-osmolality and hyponatremia; I48.92 Unspecified atrial flutter; I31.3 Pericardial effusion (noninflammatory); R04.2 Hemoptysis; Z68.41 Body mass index [BMI] 40.0-44.9, adult; J44.0 Chronic obstructive pulmonary disease with (acute) lower respiratory infection; I42.9 Cardiomyopathy, unspecified; R26.2 Difficulty in walking, not elsewhere classified; I48.0 Paroxysmal atrial fibrillation; E78.5 Hyperlipidemia, unspecified; E66.01 Morbid (severe) obesity due to excess calories; Z96.652 Presence of left artificial knee joint; I27.20 Pulmonary hypertension, unspecified; E11.40 Type 2 diabetes mellitus with diabetic neuropathy, unspecified; R32 Unspecified urinary incontinence; M20.091 Other deformity of right finger(s); L60.3 Nail dystrophy; B35.1 Tinea unguium; M10.9 Gout, unspecified; L60.2 Onychogryphosis; Z20.822 Contact with and (suspected) exposure to COVID-19; Z86.16 Personal history of COVID-19; Z85.3 Personal history of malignant neoplasm of breast; Z90.12 Acquired absence of left breast and nipple; Z79.899 Other long term (current) drug therapy; Z79.51 Long term (current) use of inhaled steroids; Z79.4 Long term (current) use of insulin; Z91.040 Latex allergy status
CPT/HCPCS: 36415; 36600; 71045; 71250; 78580; 80048; 80053; 82375; 82805; 82962; 85025; 87426; 93005; 94640; 97110; 97116; 97162; 97166; 97530; 97535; J1650; J1815; J1940; J1956; J2185; J2920